=== PATIENT | male | born 1960 | race Caucasian/White ===

== ENCOUNTER 2016-04-13 17:19 | Emergency (ER) | payer OTHER ==
[~2016-04-13] VITALS: Ht 152.4 cm; Wt 47.8 kg
[~2016-04-13 17:19] MED LIST: ACETAMINOP160 MG/51 GT; ACETAMINOP160 MG/51 PO; ACTOS30 MG GT; ACTOS45 MG GT; ACYCLOVIR200 MG/5 M GT; ALLERGY10 M2 GT; AMBIEN5 MG PO; ASPIR 8181 M1 GT; ASPIRIN81 M1 GT; ASPIRIN81 M2 GT; ASPIRIN81 M2 PO; AUGMENTIN50 MG/ML GT; AUGMENTIN600 MG/5 M PO; AUGMENTIN80 MG/ML PO; Ambien GT; BIOTENE ORALBAL42 GM MISC; BIOTENE ORALBAL42 GM MM; CALMOSEPTINE O120 GM TP; CAVILON DURABLE92 G1 TP; CHILD ASPIRIN81 M1 GT; CHILDREN'S ASPI81 M1 GT; CLARITIN10 MG GT; CLARITIN5 MG/5 ML GT; CLOTRIMAZOLE-BE15 GM TP; COLACE10 MG/ML GT; COMPAZINE10 MG GT; COMPAZINE10 MG PO; DAILY VITE1 EAC1 GT; DICLOXACILLIN500 MG GT; DIOCTO50 MG/5 ML GT; DOCU LIQUI50 MG/5 ML GT; DUONEB 2.5-0.5 M3 ML AEROSOL; DUONEB 2.5-0.5 M3 ML IH; DuoNeb IH; ERYTHROMYC1 APPLICAT LEFT EYE; FEOSOL300 MG/5 M GT; FLONASE16 G1 BOTH NARES; GABAPENTIN250 MG/5 M GT; GABAPENTIN250 MG/5 M PO; GABAPENTIN300 MG GT; GLUCAGEN1 MG IM; GLUCAGON1 MG IM; GLUCOPHAGE500 MG GT; HUMALOG100 UNIT/1 SC; HUMALOG100 UNIT/2 SC; LANTUS 10100 UNITS/ SC; LANTUS 3 M100 UNITS1 SC; LEVAQUIN500 MG GT; LEVAQUIN750 MG GT; LEVEMIR FL100 UNITS/ SC; LEVEMIR100 UNIT/2 SC; LEVO-T150 MCG PO; LEVOTHYROXINE125 MCG PO; LEVOTHYROXINE75 MCG GT; LEVOTHYROXINE75 MCG PO; LEVOTHYROXINE88 MCG GT; LEVOXYL88 MCG GT; LINZESS145 MCG PO; LISINOPRIL2.5 MG GT; LISINOPRIL5 MG GT; LORATADINE5 MG/5 M3 GT; LORATADINE5 MG/5 M3 PO; Levaquin G; Levothroid,Synthroid GT; METFORMIN HCL500 MG GT; METFORMIN HCL850 MG GT; MILK OF MAGN GT; MILK OF MAGNESI10 ML GT; MULTI-DELYN473 M1 GT; MULTIPLE VITAM1 EACH PO; NEURONTIN50 MG/ML GT; NOVOLIN N100 UNITS/ SC; NOVOLOG 10100 UNITS/ SC; NOVOLOG PE100 UNITS/ SC; NYSTATIN15 GM TP; NovoLOG Pen 3 ml SC; OMNICEF50 MG/1 ML PO; ONE-A-DAY ESSE1 EAC1 GT; PHENERGAN25 MG PR; PHILLIPS'400 MG/5 M GT; PIOGLITAZONE HC45 MG GT; PIOGLITAZONE HC45 MG PO; POLYMYXIN B-TMP10 ML LEFT EYE; PREVACID SOLUTA15 MG GT; PREVACID15 MG GT; PREVACID15 MG PO; PRILOSEC10 MG GT; RISAMINE OINTM113 GM TP; ROBITUSSIN DM118 ML GT; Reglan GT; SILACE50 MG/5 ML PO; SYNTHROID100 MCG PO; SYNTHROID50 MCG GT; SYNTHROID88 MCG GT; TYLENOL ELIXIR GT; TYLENOL SO167 MG/5 M GT; VALTREX50 MG/ML GT; VITAMIN B122500 MCG PO; WATER FLUSH GT; ZESTRIL2.5 MG GT; ZESTRIL2.5 MG PO; ZOFRAN0.8 MG/1 M GT; ZOVIRAX40 MG/ML GT; ZOVIRAX400 MG GT; Zeasorb Antifungal T TP; [UNRECOGNIZED DRUG - OTHER] GT; [UNRECOGNIZED DRUG - OTHER] GT; [UNRECOGNIZED DRUG - OTHER] PO; [UNRECOGNIZED DRUG - OTHER] TP; [UNRECOGNIZED DRUG - OTHER] TP; [UNRECOGNIZED DRUG - OTHER] TP; [UNRECOGNIZED DRUG - SUPPLY] TP
[2016-04-13 19:35] VITALS: BP 142/88
[2016-04-15 22:16] LABS: POINT-OF-CARE METER ID UU13113800
== END 2016-04-13 19:36 | disposition home or self-care (01) ==
LOC: EME 17:19
PROVIDERS: Nurse Practitioner Family
PROC: 0D20XUZ Change Feeding Device in Upper Intestinal Tract, External Approach (ICD-10-PCS; principal; 2016-04-13)
DX: K94.29 Other complications of gastrostomy (principal); Z43.1 Encounter for attention to gastrostomy; F79 Unspecified intellectual disabilities; E03.9 Hypothyroidism, unspecified; J45.909 Unspecified asthma, uncomplicated; E11.9 Type 2 diabetes mellitus without complications; Z79.4 Long term (current) use of insulin; Z79.82 Long term (current) use of aspirin
CPT/HCPCS: 74000; 82948; 99281; 99284; B4087

== ENCOUNTER → 2016-06-08 | Outpatient (CLI) | payer OTHER | END | disposition HM.POTOMAC | LOC: RAD 12:37 | PROC: 0DH67UZ Insertion of Feeding Device into Stomach, Via Natural or Artificial Opening (ICD-10-PCS; principal; 2016-06-08) | DX: K94.20 Gastrostomy complication, unspecified (principal) ==

== ENCOUNTER 2016-07-27 00:11 | Inpatient (IN) | payer OTHER ==
[~2016-07-27] VITALS: Ht 149.9 cm; Wt 59.3 kg
[~2016-07-27 00:11] MED LIST changes: -GABAPENTIN250 MG/5 M PO; +LEVO-T150 MCG GT; -LEVO-T150 MCG PO; +LINZESS145 MCG GT; -LINZESS145 MCG PO; -LORATADINE5 MG/5 M3 PO; +MULTIPLE VITAM1 EACH GT; -MULTIPLE VITAM1 EACH PO; -PIOGLITAZONE HC45 MG PO; +SILACE50 MG/5 ML GT; -SILACE50 MG/5 ML PO; +VITAMIN B122500 MCG GT; -VITAMIN B122500 MCG PO
[2016-07-27 01:02] LABS: HEMATOCRIT 25.4 % (38.0-50.0); MCH 30.7 PG (29.0-34.0); MCHC 33.5 G/DL (30.0-36.0); MEAN PLAT.VOLUME 11.2 uM^3 (9.0-12.4); RBC DIS.WIDTH-CV 14.9 % (11.8-14.6); RBC DIS.WIDTH-SD 50.8 % (39-53); RED BLOOD COUNT 2.77 M/uL (4.00-5.50); WHITE BLOOD COUNT 2.4 K/uL (4.1-10.2)
[2016-07-27 01:07] LABS: MCV 91.7 FL (86-99); PLATELET COUNT 111 K/uL (156-360)
[2016-07-27 01:12] LABS: CHLORIDE 97 mEq/L (99-109); POTASSIUM 4.3 mEq/L (3.7-5.4); SODIUM 126 mEq/L (136-147)
[2016-07-27 01:14] LABS: INTER. NORMALIZED RATIO 1.3; PROTHROMBIN TIME 13.2 (9.2-11.2); PTT 29.9 (25-32)
[2016-07-27 01:15] LABS: ANION GAP 6 MEQ/L (2-14)
[2016-07-27 01:16] LABS: TOTAL BILIRUBIN 0.4 mg/dL (0.0-1.0)
[2016-07-27 01:18] LABS: ALKALINE PHOSPHATASE 115 IU/L (3-129); GFR ESTIMATE (CALCULATED) 51 mL/min/
[2016-07-27 01:19] LABS: UREA NITROGEN (BUN) 27 mg/dL (9-23)
[2016-07-27 01:21] LABS: LIPASE 8 U/L (1.0-51.0)
[2016-07-27 01:23] LABS: GLUCOSE 546 mg/dL (70-99)
[2016-07-27 01:27] LABS: TROP-I INTERPRETATION NEGATIVE; TROPONIN-I 0.02 ng/mL (0.0-0.30)
[2016-07-27 01:35] LABS: INFLUENZA A VIRAL ANTIGEN POSITIVE; INFLUENZA B VIRAL ANTIGEN NEGATIVE
[2016-07-27 01:46] LABS: CARBON DIOXIDE (BICARBONATE) 27.3 MEQ/L (20-31)
[2016-07-27 05:14] LABS: BILIRUBIN NEGATIVE; BLOOD NEGATIVE; COLOR YELLOW ((YELLOW)); GLUCOSE (STRIP) >=500; KETONES NEGATIVE; LEUKOCYTES NEGATIVE; NITRITE NEGATIVE; PROTEIN (STRIP) NEGATIVE; SPECIFIC GRAVITY 1.015 (1.000-1.030); UROBILINOGEN 0.2 MG/DL (0.2-1.0)
[2016-07-27 05:17] LABS: ADD MIUA? NO; UCUL ADDED? NO
[2016-07-27 05:22] LABS: GLUCOSE 51 mg/dL (70-99)
[2016-07-27 05:51] LABS: CREATININE 1.3 mg/dL (0.6-1.3); POTASSIUM 3.9 mEq/L (3.7-5.4)
[2016-07-27 06:09] LABS: BASE EXCESS -5.8 mEq/L (-3 to +3); BICARBONATE 20.2 mEq/L (22-26); CARBOXY HGB 1.8 % (0-5); METHEMOGLOBIN 0.6 % (0-1.5); PCO2 41 mm Hg (35-45); PO2 115 mm Hg (80-100)
[2016-07-27 06:10] LABS: COMMENTS - BLOOD GASES C+A+; DEVICE NCHH; FI02 100 %; O2 FLOW 70 L/MIN; SITE RR
[2016-07-27 06:23] LABS: POINT-OF-CARE METER ID UU13113702
[2016-07-27] MEDS ORDERED: HUMALOG100 UNIT/1 SC (08:11)
[2016-07-27 08:13] LABS: POINT-OF-CARE METER ID UU13113702
[2016-07-27] MEDS ORDERED: GLUCERNA 1 CAL237 ML GT (08:14)
[2016-07-27] MEDS ORDERED: CEPHALEXIN500 MG GT (08:20)
[2016-07-27] MEDS ORDERED: MIRALAX17 GM GT (08:22)
[2016-07-27] MEDS ORDERED: FERROUS SU220 MG/53 GT (08:25)
[2016-07-27] MEDS ORDERED: SALINE NASAL SP45 ML BOTH NARES (08:27)
[2016-07-27] MEDS ORDERED: TAMIFLU6 MG/1 ML GT (08:29)
[2016-07-27] MEDS ORDERED: CAVILON DURABLE92 G1 TP (08:30)
[2016-07-27 09:13] LABS: POINT-OF-CARE METER ID UU13113702
[2016-07-27 09:25] VITALS: BP 91/67
[2016-07-27 09:30] VITALS: BP 94/61
[2016-07-27 09:45] VITALS: BP 77/55
[2016-07-27 11:01] LABS: METH RESISTANT S AUREUS PCR NEGATIVE (NEGATIVE); PROBE CHECK PASS; SPECIMEN PROCESSING CONTROL PASS
[2016-07-27 13:43] LABS: POINT-OF-CARE METER ID UU14162636
[2016-07-27 18:38] LABS: POINT-OF-CARE METER ID UU13113803; POINT-OF-CARE USER ID 606021424
[2016-07-27 20:00] VITALS: BP 108/70
[2016-07-28 05:15] LABS: POINT-OF-CARE METER ID UU14162636
[2016-07-28 06:12] LABS: ANION GAP 7 MEQ/L (2-14); CHLORIDE 111 MEQ/L (99-109); GFR ESTIMATE (CALCULATED) > 59 mL/min/; POTASSIUM 4.3 MEQ/L (3.7-5.4); SAMPLE HEMOLYSIS CHECK 0; SAMPLE ICTERIC CHECK 0; SAMPLE LIPEMIA CHECK 0; UREA NITROGEN (BUN) 22 mg/dL (9-23)
[2016-07-28 06:13] LABS: GLUCOSE 150 mg/dL (70-99); SODIUM 137 MEQ/L (136-147)
[2016-07-28 06:16] LABS: HEMATOCRIT 23.6 % (38.0-50.0); MCHC 32.6 G/DL (30.0-36.0); MCV 95.2 FL (86-99); RBC DIS.WIDTH-CV 15.8 % (11.8-14.6); RBC DIS.WIDTH-SD 54.6 % (39-53); RED BLOOD COUNT 2.48 M/uL (4.00-5.50)
[2016-07-28 06:21] LABS: WHITE BLOOD COUNT 12.1 K/uL (4.1-10.2)
[2016-07-28 06:52] LABS: MEAN PLAT.VOLUME 11.5 uM^3 (9.0-12.4); PLAT.SUFFICIENCY DECREASED; PLATELET COUNT 64 K/uL (156-360)
[2016-07-28 12:22] LABS: POINT-OF-CARE METER ID UU13113803
[2016-07-28 14:13] VITALS: BP 116/61
[2016-07-28 16:49] VITALS: BP 115/52
[2016-07-28 18:04] LABS: POINT-OF-CARE METER ID UU13113803
[2016-07-28 20:08] VITALS: BP 130/64
[2016-07-29 06:22] LABS: EOSINOPHIL (%) 0 % (0-5); IMMATURE GRANULOCYTE COUNT 0.1 K/uL; INSTRUMENT ABS NEUTROPHIL CT 10.1 K/uL; LYMPHOCYTE COUNT 0.4 K/uL (1.0-2.8); MCH 29.3 PG (29.0-34.0); MCHC 32.4 G/DL (30.0-36.0); MONOCYTE (%) 3.9 % (3-12); MONOCYTE COUNT 0.4 K/uL (0-0.8); NEUTROPHIL (%) 91.3 % (45-76); NEUTROPHIL COUNT 10.1 K/uL (1.8-6.4); RBC DIS.WIDTH-CV 17.3 % (11.8-14.6); RBC DIS.WIDTH-SD 57.3 % (39-53); RED BLOOD COUNT 3.65 M/uL (4.00-5.50); WHITE BLOOD COUNT 11.1 K/uL (4.1-10.2)
[2016-07-29 06:23] LABS: MCV 90.4 FL (86-99)
[2016-07-29 06:24] LABS: ANION GAP 15 MEQ/L (2-14); CHLORIDE 107 MEQ/L (99-109); GFR ESTIMATE (CALCULATED) > 59 mL/min/; GLUCOSE 448 mg/dL (70-99); SAMPLE HEMOLYSIS CHECK 0; SAMPLE ICTERIC CHECK 0; SAMPLE LIPEMIA CHECK 0; SODIUM 137 MEQ/L (136-147); UREA NITROGEN (BUN) 29 mg/dL (9-23)
[2016-07-29 07:57] LABS: HEMATOLOGY COMMENT 1 SMEAR COMPATIBLE; IMM.PLATELET FRACTION 6.9 (1-7)
[2016-07-29 07:58] LABS: PLATELET COUNT 36 K/uL (156-360)
[2016-07-29 08:00] LABS: POINT-OF-CARE METER ID UU13113803
[2016-07-29 12:02] LABS: POINT-OF-CARE METER ID UU13113803
[2016-07-29 16:55] LABS: POINT-OF-CARE METER ID UU13113803
[2016-07-29 17:18] LABS: POINT-OF-CARE METER ID UU13113803
[2016-07-30 01:22] LABS: POINT-OF-CARE METER ID UU13113803
[2016-07-30 06:06] LABS: EOSINOPHIL (%) 0 % (0-5); HEMATOCRIT 30.7 % (38.0-50.0); IMMATURE GRANULOCYTE (%) 1.3 % (0.0-0.7); IMMATURE GRANULOCYTE COUNT 0.2 K/uL; INSTRUMENT ABS NEUTROPHIL CT 13.5 K/uL; LYMPHOCYTE COUNT 0.5 K/uL (1.0-2.8); MCH 29.7 PG (29.0-34.0); MCHC 34.2 G/DL (30.0-36.0); MCV 86.7 FL (86-99); MONOCYTE (%) 5.1 % (3-12); MONOCYTE COUNT 0.8 K/uL (0-0.8); NEUTROPHIL (%) 90.3 % (45-76); NEUTROPHIL COUNT 13.5 K/uL (1.8-6.4); NRBC (%) 0.2 /100 WBC (0-0); RBC DIS.WIDTH-CV 17.2 % (11.8-14.6); RBC DIS.WIDTH-SD 55.4 % (39-53); RED BLOOD COUNT 3.54 M/uL (4.00-5.50)
[2016-07-30 06:52] LABS: IMM.PLATELET FRACTION 7.8 (1-7); PLAT.SUFFICIENCY DECREASED; PLATELET COUNT 18 K/uL (156-360)
[2016-07-30 06:53] LABS: ANION GAP 8 MEQ/L (2-14); CHLORIDE 112 MEQ/L (99-109); GFR ESTIMATE (CALCULATED) > 59 mL/min/; POTASSIUM 3.4 MEQ/L (3.7-5.4); SAMPLE HEMOLYSIS CHECK 0; SAMPLE ICTERIC CHECK 0; SAMPLE LIPEMIA CHECK 0; SODIUM 141 MEQ/L (136-147); UREA NITROGEN (BUN) 27 mg/dL (9-23)
[2016-07-30 06:57] LABS: GLUCOSE 81 mg/dL (70-99)
[2016-07-30 10:05] LABS: ADD MIUA? YES; BILIRUBIN NEGATIVE; BLOOD LARGE; COLOR RED ((YELLOW)); GLUCOSE (STRIP) NEGATIVE; KETONES MODERATE; LEUKOCYTES NEGATIVE; NITRITE NEGATIVE; PROTEIN (STRIP) 100; SPECIFIC GRAVITY 1.018 (1.000-1.030); UROBILINOGEN 0.2 MG/DL (0.2-1.0)
[2016-07-30 10:18] LABS: BACTERIA 1+ /HPF; EPITHELIAL CELLS RARE /HPF; MUCUS NONE SEEN /LPF; RED BLOOD CELLS TNTC /HPF (0-5); UCUL ADDED? YES; WHITE BLOOD CELLS TNTC /HPF (0-5)
[2016-07-30 12:50] LABS: POINT-OF-CARE METER ID UU13113803
[2016-07-30 18:16] LABS: POINT-OF-CARE METER ID UU13113803
[2016-07-30 20:00] VITALS: BP 131/74
[2016-07-30 23:00] VITALS: BP 99/60
[2016-07-31] VITALS (20 sets, daily range): BP systolic 84–125; BP diastolic 47–77
[2016-07-31 05:56] LABS: EOSINOPHIL (%) 0.1 % (0-5); HEMATOCRIT 28.9 % (38.0-50.0); IMMATURE GRANULOCYTE (%) 2.1 % (0.0-0.7); IMMATURE GRANULOCYTE COUNT 0.3 K/uL; INSTRUMENT ABS NEUTROPHIL CT 12.1 K/uL; LYMPHOCYTE COUNT 0.5 K/uL (1.0-2.8); MCH 29.7 PG (29.0-34.0); MCHC 34.3 G/DL (30.0-36.0); MCV 86.8 FL (86-99); MONOCYTE COUNT 0.7 K/uL (0-0.8); NEUTROPHIL (%) 89.1 % (45-76); NEUTROPHIL COUNT 12.1 K/uL (1.8-6.4); NRBC (%) 0.3 /100 WBC (0-0); RBC DIS.WIDTH-CV 17.5 % (11.8-14.6); RBC DIS.WIDTH-SD 55.8 % (39-53); RED BLOOD COUNT 3.33 M/uL (4.00-5.50); WHITE BLOOD COUNT 13.5 K/uL (4.1-10.2)
[2016-07-31 05:57] LABS: POINT-OF-CARE METER ID UU13113803
[2016-07-31 05:58] LABS: PLATELET COUNT 15 K/uL (156-360)
[2016-07-31 06:17] LABS: HEMATOCRIT 28.8 % (38.0-50.0); MCH 29.6 PG (29.0-34.0); MCHC 34.4 G/DL (30.0-36.0); MCV 86.2 FL (86-99); NRBC (%) 0.3 /100 WBC (0-0); RBC DIS.WIDTH-CV 17.3 % (11.8-14.6); RBC DIS.WIDTH-SD 55.2 % (39-53); RED BLOOD COUNT 3.34 M/uL (4.00-5.50); WHITE BLOOD COUNT 13.5 K/uL (4.1-10.2)
[2016-07-31 06:34] LABS: ANION GAP 11 MEQ/L (2-14); CHLORIDE 110 MEQ/L (99-109); GFR ESTIMATE (CALCULATED) > 59 mL/min/; LACTATE DEHYDROGENASE 502 IU/L (20-246); MAGNESIUM 1.6 mg/dl (1.3-2.7); POTASSIUM 3.8 MEQ/L (3.7-5.4); SAMPLE HEMOLYSIS CHECK 0; SAMPLE ICTERIC CHECK 0; SAMPLE LIPEMIA CHECK 0; SODIUM 141 MEQ/L (136-147); UREA NITROGEN (BUN) 28 mg/dL (9-23)
[2016-07-31 06:35] LABS: GLUCOSE 187 mg/dL (70-99)
[2016-07-31 06:42] LABS: IMM.PLATELET FRACTION 4.7 (1-7); PLAT.SUFFICIENCY DECREASED
[2016-07-31 06:55] LABS: ABS NEUTROPHIL COUNT 12.2; ANISOCYTOSIS 1+; EOSINOPHIL ABS CT 0; PLATELET COUNT 15 K/uL (156-360); SMEAR EVALUATION YES; TARGET CELLS 1+
[2016-07-31 06:57] LABS: ORDERED MAN DIFF Y
[2016-07-31 14:23] LABS: POINT-OF-CARE METER ID UU13113803
[2016-07-31 18:32] LABS: POINT-OF-CARE METER ID UU14162636
[2016-08-01] VITALS (24 sets, daily range): BP systolic 82–120; BP diastolic 44–76
[2016-08-01 00:38] LABS: POINT-OF-CARE METER ID UU14162636
[2016-08-01 06:17] LABS: EOSINOPHIL (%) 0.3 % (0-5); HEMATOCRIT 29.2 % (38.0-50.0); IMMATURE GRANULOCYTE (%) 2.9 % (0.0-0.7); IMMATURE GRANULOCYTE COUNT 0.3 K/uL; INSTRUMENT ABS NEUTROPHIL CT 9.6 K/uL; LYMPHOCYTE COUNT 0.6 K/uL (1.0-2.8); MCH 29.3 PG (29.0-34.0); MCHC 33.6 G/DL (30.0-36.0); MCV 87.4 FL (86-99); MONOCYTE (%) 6.9 % (3-12); MONOCYTE COUNT 0.8 K/uL (0-0.8); NEUTROPHIL (%) 84.5 % (45-76); NEUTROPHIL COUNT 9.6 K/uL (1.8-6.4); NRBC (%) 0.8 /100 WBC (0-0); RBC DIS.WIDTH-CV 17.8 % (11.8-14.6); RBC DIS.WIDTH-SD 57.1 % (39-53); RED BLOOD COUNT 3.34 M/uL (4.00-5.50); WHITE BLOOD COUNT 11.3 K/uL (4.1-10.2)
[2016-08-01 06:48] LABS: ANION GAP 10 MEQ/L (2-14); CHLORIDE 113 MEQ/L (99-109); GFR ESTIMATE (CALCULATED) > 59 mL/min/; GLUCOSE 134 mg/dL (70-99); MAGNESIUM 1.8 mg/dl (1.3-2.7); SODIUM 147 MEQ/L (136-147); UREA NITROGEN (BUN) 29 mg/dL (9-23)
[2016-08-01 06:51] LABS: POTASSIUM 3.5 MEQ/L (3.7-5.4)
[2016-08-01 08:02] LABS: PLAT.SUFFICIENCY DECREASED
[2016-08-01 08:06] LABS: PLATELET COUNT 18 K/uL (156-360)
[2016-08-01 09:29] LABS: INTERNAL CONTROL VALID? YES
[2016-08-01 14:27] LABS: Heparin Induced Plt Ab Negative (Negative)
[2016-08-01 15:52] LABS: UFH SRA Result Negative (Negative)
[2016-08-02] VITALS (27 sets, daily range): BP systolic 72–115; BP diastolic 42–71
[2016-08-02 04:25] LABS: HEMATOCRIT 28.1 % (38.0-50.0); MCH 29.7 PG (29.0-34.0); MCHC 34.9 G/DL (30.0-36.0); MCV 85.2 FL (86-99); NRBC (%) 2.4 /100 WBC (0-0); RBC DIS.WIDTH-CV 17.2 % (11.8-14.6); RBC DIS.WIDTH-SD 54.2 % (39-53)
[2016-08-02 04:31] LABS: POTASSIUM 3.4 mEq/L (3.7-5.4); SODIUM 148 mEq/L (136-147)
[2016-08-02 04:32] LABS: CHLORIDE 114 mEq/L (99-109); MAGNESIUM 1.6 mg/dL (1.3-2.7)
[2016-08-02 04:33] LABS: GLUCOSE 104 mg/dL (70-99)
[2016-08-02 04:35] LABS: ANION GAP 10 MEQ/L (2-14)
[2016-08-02 04:37] LABS: GFR ESTIMATE (CALCULATED) 56 mL/min/
[2016-08-02 04:38] LABS: UREA NITROGEN (BUN) 31 mg/dL (9-23)
[2016-08-02 06:09] LABS: ABS NEUTROPHIL COUNT 6.6; ANISOCYTOSIS 2+; EOSINOPHIL ABS CT 0.1; IMM.PLATELET FRACTION 10.4 (1-7); INSTRUMENT ABS NEUTROPHIL CT 6.4 K/uL; MACROCYTES 2+; MICROCYTOSIS 1+; PLAT.SUFFICIENCY VERY DECREASED; POIKILOCYTOSIS 1+; POLYCHROMASIA 1+; TARGET CELLS 1+
[2016-08-02 06:10] LABS: PLATELET COUNT 22 K/uL (156-360)
[2016-08-02 12:54] LABS: POINT-OF-CARE METER ID UU13113803
[2016-08-02 17:38] LABS: POINT-OF-CARE METER ID UU13113803
[2016-08-03] VITALS (24 sets, daily range): BP systolic 84–116; BP diastolic 54–73
[2016-08-03 05:56] LABS: EOSINOPHIL (%) 0 % (0-5); HEMATOCRIT 24.8 % (38.0-50.0); IMMATURE GRANULOCYTE (%) 2.4 % (0.0-0.7); IMMATURE GRANULOCYTE COUNT 0.1 K/uL; INSTRUMENT ABS NEUTROPHIL CT 4.4 K/uL; LYMPHOCYTE COUNT 0.1 K/uL (1.0-2.8); MCH 29.4 PG (29.0-34.0); MCHC 33.5 G/DL (30.0-36.0); MCV 87.9 FL (86-99); MONOCYTE (%) 4.7 % (3-12); MONOCYTE COUNT 0.2 K/uL (0-0.8); NEUTROPHIL (%) 89.9 % (45-76); NEUTROPHIL COUNT 4.4 K/uL (1.8-6.4); NRBC (%) 7.1 /100 WBC (0-0); RBC DIS.WIDTH-CV 17.8 % (11.8-14.6); RBC DIS.WIDTH-SD 56.8 % (39-53); RED BLOOD COUNT 2.82 M/uL (4.00-5.50)
[2016-08-03 05:57] LABS: WHITE BLOOD COUNT 4.9 K/uL (4.1-10.2)
[2016-08-03 06:11] LABS: ANION GAP 12 MEQ/L (2-14); CHLORIDE 110 MEQ/L (99-109); GFR ESTIMATE (CALCULATED) > 59 mL/min/; SAMPLE HEMOLYSIS CHECK 0; SAMPLE ICTERIC CHECK 0; SAMPLE LIPEMIA CHECK 0; SODIUM 148 MEQ/L (136-147); UREA NITROGEN (BUN) 35 mg/dL (9-23)
[2016-08-03 06:12] LABS: GLUCOSE 227 mg/dL (70-99); MAGNESIUM 2.3 mg/dl (1.3-2.7)
[2016-08-03 06:25] LABS: PLATELET COUNT 26 K/uL (156-360)
[2016-08-03 06:39] LABS: POINT-OF-CARE METER ID UU13113803
[2016-08-03 08:03] LABS: POINT-OF-CARE METER ID UU14174217
[2016-08-03 11:47] LABS: POINT-OF-CARE METER ID UU13113803
[2016-08-03 18:09] LABS: POINT-OF-CARE METER ID UU13113803
[2016-08-03 23:52] LABS: POINT-OF-CARE METER ID UU13113803
[2016-08-04] VITALS (21 sets, daily range): BP systolic 82–136; BP diastolic 48–90
[2016-08-04 05:17] LABS: POINT-OF-CARE METER ID UU13113803
[2016-08-04 09:14] LABS: ANION GAP 14 MEQ/L (2-14); CHLORIDE 110 MEQ/L (99-109); GFR ESTIMATE (CALCULATED) > 59 mL/min/; GLUCOSE 215 mg/dL (70-99); MAGNESIUM 2.3 mg/dl (1.3-2.7); POTASSIUM 3.2 MEQ/L (3.7-5.4); SAMPLE HEMOLYSIS CHECK 0; SAMPLE ICTERIC CHECK 0; SAMPLE LIPEMIA CHECK 0; SODIUM 149 MEQ/L (136-147); UREA NITROGEN (BUN) 36 mg/dL (9-23)
[2016-08-04 09:20] LABS: VANCOMYCIN, TROUGH 19.9 MCG/ML (10-20)
[2016-08-04 09:28] LABS: EOSINOPHIL (%) 0 % (0-5); HEMATOCRIT 25.6 % (38.0-50.0); IMMATURE GRANULOCYTE (%) 2.5 % (0.0-0.7); IMMATURE GRANULOCYTE COUNT 0.2 K/uL; LYMPHOCYTE COUNT 0.3 K/uL (1.0-2.8); MCH 29.5 PG (29.0-34.0); MCHC 32.8 G/DL (30.0-36.0); MCV 89.8 FL (86-99); MONOCYTE (%) 5.6 % (3-12); MONOCYTE COUNT 0.4 K/uL (0-0.8); NEUTROPHIL (%) 88.7 % (45-76); NRBC (%) 7.6 /100 WBC (0-0); PLAT.SUFFICIENCY DECREASED; RBC DIS.WIDTH-CV 18.1 % (11.8-14.6); RBC DIS.WIDTH-SD 57.4 % (39-53); RED BLOOD COUNT 2.85 M/uL (4.00-5.50)
[2016-08-04 09:35] LABS: WHITE BLOOD COUNT 7.9 K/uL (4.1-10.2)
[2016-08-04 11:58] LABS: POINT-OF-CARE METER ID UU13113803
[2016-08-04 19:55] LABS: IMM.PLATELET FRACTION 14.3 (1-7)
[2016-08-04 22:29] LABS: POINT-OF-CARE METER ID UU13113803
[2016-08-04 22:42] LABS: PLATELET COUNT 43 K/uL (156-360)
[2016-08-05] VITALS (24 sets, daily range): BP systolic 87–138; BP diastolic 48–96
[2016-08-05 06:29] LABS: ANION GAP 8 MEQ/L (2-14); CHLORIDE 112 MEQ/L (99-109); GFR ESTIMATE (CALCULATED) > 59 mL/min/; MAGNESIUM 2.3 mg/dl (1.3-2.7); NRBC (%) 11.6 /100 WBC (0-0); POTASSIUM 3.7 MEQ/L (3.7-5.4); SAMPLE HEMOLYSIS CHECK 0; SAMPLE ICTERIC CHECK 0; SAMPLE LIPEMIA CHECK 0; SODIUM 152 MEQ/L (136-147); UREA NITROGEN (BUN) 33 mg/dL (9-23)
[2016-08-05 06:41] LABS: GLUCOSE 91 mg/dL (70-99)
[2016-08-05 06:58] LABS: EOSINOPHIL (%) 0 % (0-5); IMM.PLATELET FRACTION 16.3 (1-7); IMMATURE GRANULOCYTE (%) 4.8 % (0.0-0.7); IMMATURE GRANULOCYTE COUNT 0.4 K/uL; INSTRUMENT ABS NEUTROPHIL CT 7.4 K/uL; LYMPHOCYTE COUNT 0.2 K/uL (1.0-2.8); MCH 29.8 PG (29.0-34.0); MCHC 32.8 G/DL (30.0-36.0); MCV 90.9 FL (86-99); MONOCYTE (%) 8.2 % (3-12); MONOCYTE COUNT 0.7 K/uL (0-0.8); NEUTROPHIL (%) 84.8 % (45-76); NEUTROPHIL COUNT 7.4 K/uL (1.8-6.4); PLAT.SUFFICIENCY DECREASED; PLATELET COUNT 42 K/uL (156-360); RBC DIS.WIDTH-CV 18.7 % (11.8-14.6); RED BLOOD COUNT 2.75 M/uL (4.00-5.50); WHITE BLOOD COUNT 8.7 K/uL (4.1-10.2)
[2016-08-06] VITALS (24 sets, daily range): BP systolic 94–118; BP diastolic 54–89
[2016-08-06 06:09] LABS: ANION GAP 7 MEQ/L (2-14); CHLORIDE 110 MEQ/L (99-109); GFR ESTIMATE (CALCULATED) > 59 mL/min/; GLUCOSE 132 mg/dL (70-99); MAGNESIUM 2.2 mg/dl (1.3-2.7); POTASSIUM 3.4 MEQ/L (3.7-5.4); SAMPLE HEMOLYSIS CHECK 0; SAMPLE ICTERIC CHECK 0; SAMPLE LIPEMIA CHECK 0; SODIUM 149 MEQ/L (136-147); UREA NITROGEN (BUN) 32 mg/dL (9-23)
[2016-08-06 06:11] LABS: MCH 29.2 PG (29.0-34.0); MCHC 31.9 G/DL (30.0-36.0); MCV 91.5 FL (86-99); NRBC (%) 29.4 /100 WBC (0-0); RBC DIS.WIDTH-CV 19.2 % (11.8-14.6); RBC DIS.WIDTH-SD 57.6 % (39-53); RED BLOOD COUNT 2.84 M/uL (4.00-5.50); WHITE BLOOD COUNT 10.3 K/uL (4.1-10.2)
[2016-08-06 06:26] LABS: POINT-OF-CARE METER ID UU14162636
[2016-08-06 06:52] LABS: ANISOCYTOSIS 2+; BAND NEUTROPHILS 4.4 % (0-8.0); EOSINOPHIL ABS CT 0; IMM.PLATELET FRACTION 15.7 (1-7); INSTRUMENT ABS NEUTROPHIL CT 8.4 K/uL; LYMPHOCYTES 0.9 % (15.0-45.0); MACROCYTES 2+; METAMYELOCYTES 3.5 %; NUCLEATED RBC'S 37.2; PLAT.SUFFICIENCY DECREASED; PLATELET COUNT 47 K/uL (156-360); POIKILOCYTOSIS 1+; SCHISTOCYTES 1+; SEG.NEUTROPHILS 83.2 % (46.0-76.0); SPHEROCYTES 1+; TARGET CELLS 1+
[2016-08-06 12:05] LABS: POINT-OF-CARE METER ID UU14162636
[2016-08-06 18:22] LABS: POINT-OF-CARE METER ID UU14162636
[2016-08-06 23:00] LABS: POINT-OF-CARE METER ID UU14162636
[2016-08-07] VITALS (22 sets, daily range): BP systolic 89–125; BP diastolic 56–76
[2016-08-07 02:08] LABS: POINT-OF-CARE METER ID UU14174217; POINT-OF-CARE USER ID 609231305
[2016-08-07 06:11] LABS: POINT-OF-CARE METER ID UU14174217
[2016-08-07 06:24] LABS: ANION GAP 8 MEQ/L (2-14); CHLORIDE 107 MEQ/L (99-109); GFR ESTIMATE (CALCULATED) > 59 mL/min/; GLUCOSE 99 mg/dL (70-99); MAGNESIUM 1.9 mg/dl (1.3-2.7); POTASSIUM 3.9 MEQ/L (3.7-5.4); SAMPLE HEMOLYSIS CHECK 0; SAMPLE ICTERIC CHECK 0; SAMPLE LIPEMIA CHECK 0; SODIUM 144 MEQ/L (136-147); UREA NITROGEN (BUN) 27 mg/dL (9-23)
[2016-08-07 06:26] LABS: HEMATOCRIT 25.8 % (38.0-50.0); MCH 29.3 PG (29.0-34.0); MCHC 31.4 G/DL (30.0-36.0); MCV 93.5 FL (86-99); NRBC (%) 28.6 /100 WBC (0-0); RBC DIS.WIDTH-CV 20.9 % (11.8-14.6); RBC DIS.WIDTH-SD 58.8 % (39-53); RED BLOOD COUNT 2.76 M/uL (4.00-5.50); WHITE BLOOD COUNT 11.1 K/uL (4.1-10.2)
[2016-08-07 07:03] LABS: ABS NEUTROPHIL COUNT 9.7; ANISOCYTOSIS 2+; BAND NEUTROPHILS 3.6 % (0-8.0); EOSINOPHIL ABS CT 0; IMM.PLATELET FRACTION 13.9 (1-7); LYMPHOCYTES 4.5 % (15.0-45.0); MACROCYTES 2+; METAMYELOCYTES 1.8 %; NUCLEATED RBC'S 29.5; PLAT.SUFFICIENCY DECREASED; PLATELET COUNT 33 K/uL (156-360); POIKILOCYTOSIS 1+; POLYCHROMASIA 1+; SCHISTOCYTES 1+; SEG.NEUTROPHILS 83.9 % (46.0-76.0); SPHEROCYTES 1+
[2016-08-07 18:24] LABS: POINT-OF-CARE METER ID UU14174217
[2016-08-08] VITALS (15 sets, daily range): BP systolic 97–114; BP diastolic 54–73
[2016-08-08 00:35] LABS: POINT-OF-CARE METER ID UU14174217
[2016-08-08 06:12] LABS: ANION GAP 6 MEQ/L (2-14); CHLORIDE 102 MEQ/L (99-109); GFR ESTIMATE (CALCULATED) > 59 mL/min/; SAMPLE HEMOLYSIS CHECK 0; SAMPLE ICTERIC CHECK 0; SAMPLE LIPEMIA CHECK 0; SODIUM 137 MEQ/L (136-147); UREA NITROGEN (BUN) 25 mg/dL (9-23)
[2016-08-08 06:13] LABS: GLUCOSE 163 mg/dL (70-99); MAGNESIUM 2.2 mg/dl (1.3-2.7); POTASSIUM 5.3 MEQ/L (3.7-5.4)
[2016-08-08 06:43] LABS: HEMATOCRIT 26.9 % (38.0-50.0); MCH 30.2 PG (29.0-34.0); MCV 94.4 FL (86-99); NRBC (%) 29.4 /100 WBC (0-0); RBC DIS.WIDTH-CV 22.4 % (11.8-14.6); RBC DIS.WIDTH-SD 58.4 % (39-53); RED BLOOD COUNT 2.85 M/uL (4.00-5.50); WHITE BLOOD COUNT 10.6 K/uL (4.1-10.2)
[2016-08-08 06:59] LABS: ABS NEUTROPHIL COUNT 8.8; ANISOCYTOSIS 2+; BAND NEUTROPHILS 7.4 % (0-8.0); BASOPHILS 0.9 %; EOSINOPHIL ABS CT 0; INSTRUMENT ABS NEUTROPHIL CT 8.7 K/uL; LYMPHOCYTES 1.8 % (15.0-45.0); MACROCYTES 1+; METAMYELOCYTES 1.8 %; MICROCYTOSIS 1+; MYELOCYTES 3.7 %; NUCLEATED RBC'S 27.5; PLAT.SUFFICIENCY DECREASED; POIKILOCYTOSIS 1+; POLYCHROMASIA 1+; SCHISTOCYTES 1+; SEG.NEUTROPHILS 75.2 % (46.0-76.0); TARGET CELLS 1+
[2016-08-08 07:12] LABS: PLATELET COUNT 24 K/uL (156-360)
[2016-08-08 11:56] LABS: POINT-OF-CARE METER ID UU14174217
[2016-08-08 17:33] LABS: POINT-OF-CARE METER ID UU13113803
[2016-08-08 23:38] LABS: POINT-OF-CARE METER ID UU13113803
[2016-08-09 00:15] VITALS: BP 108/62
[2016-08-09 00:45] VITALS: BP 108/62
[2016-08-09 04:23] VITALS: BP 121/58
[2016-08-09 05:36] LABS: ANION GAP 5 MEQ/L (2-14); CHLORIDE 101 MEQ/L (99-109); GFR ESTIMATE (CALCULATED) > 59 mL/min/; GLUCOSE 147 mg/dL (70-99); POTASSIUM 4.8 MEQ/L (3.7-5.4); SAMPLE HEMOLYSIS CHECK 0; SAMPLE ICTERIC CHECK 0; SAMPLE LIPEMIA CHECK 0; SODIUM 138 MEQ/L (136-147); UREA NITROGEN (BUN) 26 mg/dL (9-23)
[2016-08-09 06:12] LABS: MCHC 31.4 G/DL (30.0-36.0); MCV 95.6 FL (86-99); NRBC (%) 30.8 /100 WBC (0-0); RBC DIS.WIDTH-SD 58.2 % (39-53); RED BLOOD COUNT 2.93 M/uL (4.00-5.50); WHITE BLOOD COUNT 8.9 K/uL (4.1-10.2)
[2016-08-09 07:49] LABS: ABS NEUTROPHIL COUNT 7.7; ANISOCYTOSIS 3+; EOSINOPHIL ABS CT 0; HELMET CELLS 1+; IMM.PLATELET FRACTION 16.9 (1-7); INSTRUMENT ABS NEUTROPHIL CT 7.3 K/uL; MACROCYTES 2+; MICROCYTOSIS 1+; PLAT.SUFFICIENCY DECREASED; POIKILOCYTOSIS 1+; POLYCHROMASIA 2+; SCHISTOCYTES 1+; SPHEROCYTES 1+; TARGET CELLS 1+
[2016-08-09 07:55] LABS: PLATELET COUNT 28 K/uL (156-360)
[2016-08-09 08:08] VITALS: BP 116/57
[2016-08-09 12:09] LABS: POINT-OF-CARE METER ID UU14149397
[2016-08-09 17:13] VITALS: BP 105/68
[2016-08-10 00:26] VITALS: BP 90/51
[2016-08-10 05:31] LABS: HEMATOCRIT 29.2 % (38.0-50.0); MCH 30.9 PG (29.0-34.0); MCHC 31.8 G/DL (30.0-36.0); NRBC (%) 14.1 /100 WBC (0-0); RBC DIS.WIDTH-SD 57.3 % (39-53); RED BLOOD COUNT 3.01 M/uL (4.00-5.50)
[2016-08-10 05:32] LABS: WHITE BLOOD COUNT 11.7 K/uL (4.1-10.2)
[2016-08-10 06:01] LABS: ABS NEUTROPHIL COUNT 10.4; ANISOCYTOSIS 2+; ATYPICAL LYMPHOCYTE 0.9 %; BAND NEUTROPHILS 1.7 % (0-8.0); BASOPHILS 0.9 %; EOSINOPHIL ABS CT 0; HELMET CELLS 1+; HYPOCHROMASIA 2+; IMM.PLATELET FRACTION 18.5 (1-7); INSTRUMENT ABS NEUTROPHIL CT 10.1 K/uL; LYMPHOCYTES 2.6 % (15.0-45.0); MACROCYTES 2+; METAMYELOCYTES 0.9 %; MICROCYTOSIS 1+; MYELOCYTES 0.9 %; NUCLEATED RBC'S 10.5; PLATELET COUNT 35 K/uL (156-360); POIKILOCYTOSIS 1+; POLYCHROMASIA 2+; SEG.NEUTROPHILS 86.8 % (46.0-76.0); TARGET CELLS 2+; TEAR DROP CELLS 2+
[2016-08-10 06:13] LABS: ALKALINE PHOSPHATASE 194 IU/L (3-129); ANION GAP 6 MEQ/L (2-14); CHLORIDE 99 MEQ/L (99-109); DIRECT BILIRUBIN 0.2 mg/dL (0.0-0.3); GFR ESTIMATE (CALCULATED) > 59 mL/min/; LACTATE DEHYDROGENASE 856 IU/L (20-246); MAGNESIUM 1.8 mg/dl (1.3-2.7); POTASSIUM 4.3 MEQ/L (3.7-5.4); SAMPLE HEMOLYSIS CHECK 0; SAMPLE ICTERIC CHECK 0; SAMPLE LIPEMIA CHECK 0; SODIUM 139 MEQ/L (136-147); TOTAL BILIRUBIN 1.2 MG/DL (0.0-1.0); UREA NITROGEN (BUN) 29 mg/dL (9-23)
[2016-08-10 06:14] LABS: GLUCOSE 69 mg/dL (70-99)
[2016-08-10 06:45] LABS: POINT-OF-CARE METER ID UU14149397
[2016-08-10 08:03] VITALS: BP 99/58
[2016-08-10 11:46] LABS: POINT-OF-CARE METER ID UU14149397
[2016-08-10 16:26] VITALS: BP 114/57
[2016-08-10 19:35] VITALS: BP 105/62
[2016-08-10 23:41] VITALS: BP 97/57
[2016-08-11 05:45] LABS: ALKALINE PHOSPHATASE 184 IU/L (3-129); ANION GAP 6 MEQ/L (2-14); CHLORIDE 100 MEQ/L (99-109); DIRECT BILIRUBIN 0.4 mg/dL (0.0-0.3); GFR ESTIMATE (CALCULATED) > 59 mL/min/; MAGNESIUM 1.8 mg/dl (1.3-2.7); POTASSIUM 4.4 MEQ/L (3.7-5.4); SAMPLE HEMOLYSIS CHECK 0; SAMPLE ICTERIC CHECK 0; SAMPLE LIPEMIA CHECK 0; SODIUM 140 MEQ/L (136-147); UREA NITROGEN (BUN) 30 mg/dL (9-23)
[2016-08-11 05:46] LABS: GLUCOSE 124 mg/dL (70-99)
[2016-08-11 05:57] LABS: EOSINOPHIL (%) 0 % (0-5); IMMATURE GRANULOCYTE (%) 4.3 % (0.0-0.7); IMMATURE GRANULOCYTE COUNT 0.5 K/uL; LYMPHOCYTE COUNT 0.3 K/uL (1.0-2.8); MCH 30.7 PG (29.0-34.0); MCHC 31.1 G/DL (30.0-36.0); MCV 98.9 FL (86-99); MONOCYTE (%) 6.9 % (3-12); MONOCYTE COUNT 0.7 K/uL (0-0.8); NEUTROPHIL (%) 86.1 % (45-76); NRBC (%) 6.4 /100 WBC (0-0); PLAT.SUFFICIENCY VERY DECREASED; RBC DIS.WIDTH-CV 27.5 % (11.8-14.6); RBC DIS.WIDTH-SD 58.6 % (39-53); RED BLOOD COUNT 2.83 M/uL (4.00-5.50); WHITE BLOOD COUNT 10.4 K/uL (4.1-10.2)
[2016-08-11 06:20] LABS: IMM.PLATELET FRACTION 12.6 (1-7); PLATELET COUNT 46 K/uL (156-360)
[2016-08-11 06:49] LABS: POINT-OF-CARE METER ID UU14188577
[2016-08-11 08:58] VITALS: BP 110/64
[2016-08-11 13:53] LABS: POINT-OF-CARE METER ID UU14188577
[2016-08-11 15:56] LABS: POINT-OF-CARE METER ID UU14188577
[2016-08-11 17:47] VITALS: BP 103/67
[2016-08-11 23:34] VITALS: BP 124/58
[2016-08-12 05:55] LABS: ANION GAP 5 MEQ/L (2-14); CHLORIDE 96 MEQ/L (99-109); GFR ESTIMATE (CALCULATED) > 59 mL/min/; GLUCOSE 125 mg/dL (70-99); MAGNESIUM 1.9 mg/dl (1.3-2.7); POTASSIUM 3.7 MEQ/L (3.7-5.4); SAMPLE HEMOLYSIS CHECK 0; SAMPLE ICTERIC CHECK 0; SAMPLE LIPEMIA CHECK 0; SODIUM 138 MEQ/L (136-147); UREA NITROGEN (BUN) 27 mg/dL (9-23)
[2016-08-12 06:15] LABS: EOSINOPHIL COUNT 0.1 K/uL (0-0.3); HEMATOCRIT 32.5 % (38.0-50.0); IMMATURE GRANULOCYTE (%) 3.1 % (0.0-0.7); IMMATURE GRANULOCYTE COUNT 0.2 K/uL; INSTRUMENT ABS NEUTROPHIL CT 5.8 K/uL; MCH 31.4 PG (29.0-34.0); MCHC 30.8 G/DL (30.0-36.0); MCV 102.2 FL (86-99); MONOCYTE (%) 9.7 % (3-12); MONOCYTE COUNT 0.8 K/uL (0-0.8); NEUTROPHIL (%) 73.9 % (45-76); NEUTROPHIL COUNT 5.8 K/uL (1.8-6.4); NRBC (%) 3.3 /100 WBC (0-0); PLATELET COUNT 56 K/uL (156-360); RED BLOOD COUNT 3.18 M/uL (4.00-5.50); WHITE BLOOD COUNT 7.8 K/uL (4.1-10.2)
[2016-08-12 08:00] VITALS: BP 98/62
[2016-08-12 11:58] LABS: POINT-OF-CARE METER ID UU14188577
[2016-08-12 17:05] VITALS: BP 87/58
[2016-08-12 17:20] VITALS: BP 95/60
[2016-08-12 18:44] LABS: POINT-OF-CARE METER ID UU14188577
[2016-08-13 00:54] VITALS: BP 98/58
[2016-08-13 01:26] LABS: POINT-OF-CARE METER ID UU14188577
[2016-08-13 05:09] LABS: CHLORIDE 97 mEq/L (99-109); POTASSIUM 3.9 mEq/L (3.7-5.4); SODIUM 139 mEq/L (136-147)
[2016-08-13 05:10] LABS: MAGNESIUM 1.5 mg/dL (1.3-2.7)
[2016-08-13 05:11] LABS: GLUCOSE 98 mg/dL (70-99)
[2016-08-13 05:13] LABS: ANION GAP 8 MEQ/L (2-14)
[2016-08-13 05:15] LABS: GFR ESTIMATE (CALCULATED) > 59 mL/min/
[2016-08-13 05:16] LABS: UREA NITROGEN (BUN) 33 mg/dL (9-23)
[2016-08-13 05:43] LABS: EOSINOPHIL (%) 0.5 % (0-5); EOSINOPHIL COUNT 0.1 K/uL (0-0.3); HEMATOCRIT 33.6 % (38.0-50.0); IMMATURE GRANULOCYTE (%) 1.5 % (0.0-0.7); IMMATURE GRANULOCYTE COUNT 0.2 K/uL; INSTRUMENT ABS NEUTROPHIL CT 9.7 K/uL; LYMPHOCYTE COUNT 0.8 K/uL (1.0-2.8); MCH 31.9 PG (29.0-34.0); MCHC 31.8 G/DL (30.0-36.0); MCV 100.3 FL (86-99); MONOCYTE (%) 6.8 % (3-12); MONOCYTE COUNT 0.8 K/uL (0-0.8); NEUTROPHIL (%) 84.6 % (45-76); NEUTROPHIL COUNT 9.7 K/uL (1.8-6.4); PLATELET COUNT 59 K/uL (156-360); RBC DIS.WIDTH-CV 28.2 % (11.8-14.6); RBC DIS.WIDTH-SD 98.3 % (39-53); RED BLOOD COUNT 3.35 M/uL (4.00-5.50); WHITE BLOOD COUNT 11.5 K/uL (4.1-10.2)
[2016-08-13 07:34] VITALS: BP 91/55
[2016-08-13 12:07] LABS: POINT-OF-CARE METER ID UU14149397
[2016-08-13 15:04] VITALS: BP 97/52
[2016-08-13 18:58] LABS: POINT-OF-CARE METER ID UU14188577
[2016-08-14 00:12] VITALS: BP 101/58
[2016-08-14 01:16] LABS: POINT-OF-CARE METER ID UU14149397
[2016-08-14 06:12] LABS: EOSINOPHIL (%) 1.3 % (0-5); EOSINOPHIL COUNT 0.1 K/uL (0-0.3); HEMATOCRIT 29.8 % (38.0-50.0); IMMATURE GRANULOCYTE COUNT 0.2 K/uL; INSTRUMENT ABS NEUTROPHIL CT 5.9 K/uL; LYMPHOCYTE COUNT 0.9 K/uL (1.0-2.8); MCHC 31.5 G/DL (30.0-36.0); MCV 101.4 FL (86-99); MONOCYTE (%) 8.9 % (3-12); MONOCYTE COUNT 0.7 K/uL (0-0.8); NEUTROPHIL (%) 76.2 % (45-76); NEUTROPHIL COUNT 5.9 K/uL (1.8-6.4); NRBC (%) 0.5 /100 WBC (0-0); PLATELET COUNT 76 K/uL (156-360); RBC DIS.WIDTH-CV 26.7 % (11.8-14.6); RBC DIS.WIDTH-SD 94.1 % (39-53); RED BLOOD COUNT 2.94 M/uL (4.00-5.50)
[2016-08-14 06:19] LABS: ANION GAP 4 MEQ/L (2-14); CHLORIDE 95 MEQ/L (99-109); GFR ESTIMATE (CALCULATED) > 59 mL/min/; GLUCOSE 93 mg/dL (70-99); POTASSIUM 3.7 MEQ/L (3.7-5.4); SAMPLE HEMOLYSIS CHECK 0; SAMPLE ICTERIC CHECK 0; SAMPLE LIPEMIA CHECK 0; SODIUM 138 MEQ/L (136-147); UREA NITROGEN (BUN) 37 mg/dL (9-23)
[2016-08-14 06:36] LABS: WHITE BLOOD COUNT 7.7 K/uL (4.1-10.2)
[2016-08-14 07:36] VITALS: BP 86/52
[2016-08-14 11:31] LABS: POINT-OF-CARE METER ID UU14149397
[2016-08-14 12:10] LABS: POINT-OF-CARE METER ID UU14188577
[2016-08-14 13:04] LABS: BASE EXCESS 16.7 mEq/L (-3 to +3); CARBOXY HGB 2.9 % (0-5); METHEMOGLOBIN 1.1 % (0-1.5)
[2016-08-14 13:05] LABS: BICARBONATE 41.6 mEq/L (22-26); COMMENTS - BLOOD GASES A+C+; DEVICE NCH; O2 FLOW 5 L/MIN; PCO2 51 mm Hg (35-45); PO2 87 mm Hg (80-100); SITE RR; pH 7.52 (7.35-7.45)
[2016-08-14 15:47] VITALS: BP 94/62
[2016-08-14 23:34] VITALS: BP 96/50
[2016-08-15 00:17] LABS: POINT-OF-CARE METER ID UU14188577
[2016-08-15 05:01] VITALS: BP 122/56
[2016-08-15 05:49] LABS: ANION GAP 8 MEQ/L (2-14); CHLORIDE 92 MEQ/L (99-109); GFR ESTIMATE (CALCULATED) > 59 mL/min/; GLUCOSE 129 mg/dL (70-99); MAGNESIUM 2.1 mg/dl (1.3-2.7); SAMPLE HEMOLYSIS CHECK 1; SAMPLE ICTERIC CHECK 0; SAMPLE LIPEMIA CHECK 0; SODIUM 140 MEQ/L (136-147); UREA NITROGEN (BUN) 32 mg/dL (9-23)
[2016-08-15 05:50] LABS: POTASSIUM 3.7 MEQ/L (3.7-5.4)
[2016-08-15 06:10] LABS: EOSINOPHIL (%) 0.4 % (0-5); HEMATOCRIT 36.6 % (38.0-50.0); IMMATURE GRANULOCYTE (%) 1.1 % (0.0-0.7); IMMATURE GRANULOCYTE COUNT 0.1 K/uL; MCH 31.3 PG (29.0-34.0); MCHC 30.6 G/DL (30.0-36.0); MCV 102.2 FL (86-99); MONOCYTE COUNT 0.9 K/uL (0-0.8); PLATELET COUNT 96 K/uL (156-360); RBC DIS.WIDTH-CV 26.3 % (11.8-14.6); RBC DIS.WIDTH-SD 94.4 % (39-53); WHITE BLOOD COUNT 9.1 K/uL (4.1-10.2)
[2016-08-15 06:12] LABS: RED BLOOD COUNT 3.58 M/uL (4.00-5.50)
[2016-08-15 08:36] VITALS: BP 111/54
[2016-08-15 16:27] VITALS: BP 95/67
[2016-08-16 00:12] VITALS: BP 103/57
[2016-08-16 05:54] LABS: ANION GAP 7 MEQ/L (2-14); CHLORIDE 95 MEQ/L (99-109); GFR ESTIMATE (CALCULATED) > 59 mL/min/; GLUCOSE 123 mg/dL (70-99); MAGNESIUM 2.1 mg/dl (1.3-2.7); POTASSIUM 3.8 MEQ/L (3.7-5.4); SAMPLE HEMOLYSIS CHECK 0; SAMPLE ICTERIC CHECK 0; SAMPLE LIPEMIA CHECK 0; SODIUM 140 MEQ/L (136-147); UREA NITROGEN (BUN) 29 mg/dL (9-23)
[2016-08-16 06:28] LABS: EOSINOPHIL (%) 0.6 % (0-5); HEMATOCRIT 31.2 % (38.0-50.0); IMMATURE GRANULOCYTE (%) 1.4 % (0.0-0.7); IMMATURE GRANULOCYTE COUNT 0.1 K/uL; INSTRUMENT ABS NEUTROPHIL CT 4.4 K/uL; MCH 31.7 PG (29.0-34.0); MCHC 31.4 G/DL (30.0-36.0); MONOCYTE (%) 13.3 % (3-12); MONOCYTE COUNT 0.9 K/uL (0-0.8); NEUTROPHIL (%) 69.1 % (45-76); NEUTROPHIL COUNT 4.4 K/uL (1.8-6.4); PLATELET COUNT 106 K/uL (156-360); RBC DIS.WIDTH-CV 24.7 % (11.8-14.6); RBC DIS.WIDTH-SD 88.1 % (39-53); RED BLOOD COUNT 3.09 M/uL (4.00-5.50); WHITE BLOOD COUNT 6.4 K/uL (4.1-10.2)
[2016-08-16 08:14] VITALS: BP 110/60
[2016-08-16 12:14] LABS: POINT-OF-CARE METER ID UU14188577
[2016-08-16 16:35] VITALS: BP 103/57
[2016-08-17 00:11] VITALS: BP 82/56
[2016-08-17 06:58] LABS: POINT-OF-CARE METER ID UU14188577
[2016-08-17 07:18] LABS: EOSINOPHIL (%) 2.2 % (0-5); EOSINOPHIL COUNT 0.1 K/uL (0-0.3); HEMATOCRIT 30.3 % (38.0-50.0); IMMATURE GRANULOCYTE (%) 1.1 % (0.0-0.7); IMMATURE GRANULOCYTE COUNT 0.1 K/uL; INSTRUMENT ABS NEUTROPHIL CT 2.7 K/uL; LYMPHOCYTE COUNT 1.1 K/uL (1.0-2.8); MCH 31.4 PG (29.0-34.0); MCV 101.3 FL (86-99); MEAN PLAT.VOLUME 12.8 uM^3 (9.0-12.4); MONOCYTE (%) 14.8 % (3-12); MONOCYTE COUNT 0.7 K/uL (0-0.8); NEUTROPHIL (%) 58.4 % (45-76); NEUTROPHIL COUNT 2.7 K/uL (1.8-6.4); PLATELET COUNT 124 K/uL (156-360); RBC DIS.WIDTH-CV 24.3 % (11.8-14.6); RBC DIS.WIDTH-SD 86.8 % (39-53); RED BLOOD COUNT 2.99 M/uL (4.00-5.50); WHITE BLOOD COUNT 4.6 K/uL (4.1-10.2)
[2016-08-17 07:24] LABS: ANION GAP 7 MEQ/L (2-14); CHLORIDE 97 MEQ/L (99-109); GFR ESTIMATE (CALCULATED) > 59 mL/min/; MAGNESIUM 2.3 mg/dl (1.3-2.7); POTASSIUM 3.8 MEQ/L (3.7-5.4); SAMPLE HEMOLYSIS CHECK 0; SAMPLE ICTERIC CHECK 0; SAMPLE LIPEMIA CHECK 0; SODIUM 138 MEQ/L (136-147); TOTAL BILIRUBIN 1.2 MG/DL (0.0-1.0); UREA NITROGEN (BUN) 26 mg/dL (9-23)
[2016-08-17 07:28] LABS: ALKALINE PHOSPHATASE 130 IU/L (3-129); GLUCOSE 196 mg/dL (70-99)
[2016-08-17 08:12] VITALS: BP 105/57
[2016-08-17 12:20] LABS: POINT-OF-CARE METER ID UU14188577
[2016-08-17 15:20] VITALS: BP 104/57
[2016-08-17] MEDS ORDERED: PREDNISONE1 MG/ML GT (15:29)
== END 2016-08-17 17:36 | DRG 871 ==
LOC: EME 00:11 → 3EAST 01:45 → EDOF 01:45 → 4WEST 01:45 → EDOF 08:15 → 4WEST 08:53 → 3EAST 08-08 22:27 → 4WEST 08-08 22:49 → 3EAST 08-09 00:02
PROVIDERS: Anesthesiology; Emergency Medicine; Hospitalist; Internal Medicine; Internal Medicine Hematology & Oncology; Internal Medicine Nephrology; Internal Medicine Pulmonary Disease
PROC: 05HN33Z Insertion of Infusion Device into Left Internal Jugular Vein, Percutaneous Approach (ICD-10-PCS; principal; 2016-07-27)
PROC: 03HC33Z Insertion of Infusion Device into Left Radial Artery, Percutaneous Approach (ICD-10-PCS; 2016-07-27)
PROC: 30233N1 Transfusion of Nonautologous Red Blood Cells into Peripheral Vein, Percutaneous Approach (ICD-10-PCS; 2016-07-28)
DX: A41.9 Sepsis, unspecified organism (principal); J09.X1 Influenza due to identified novel influenza A virus with pneumonia; R65.21 Severe sepsis with septic shock; J96.01 Acute respiratory failure with hypoxia; E87.1 Hypo-osmolality and hyponatremia; D61.818 Other pancytopenia; N17.9 Acute kidney failure, unspecified; E87.2 Acidosis; J90 Pleural effusion, not elsewhere classified; J98.11 Atelectasis; R47.01 Aphasia; E87.0 Hyperosmolality and hypernatremia; Z43.1 Encounter for attention to gastrostomy; D72.819 Decreased white blood cell count, unspecified; F79 Unspecified intellectual disabilities; Q90.9 Down syndrome, unspecified; E10.40 Type 1 diabetes mellitus with diabetic neuropathy, unspecified; E03.9 Hypothyroidism, unspecified; N18.2 Chronic kidney disease, stage 2 (mild); E10.22 Type 1 diabetes mellitus with diabetic chronic kidney disease; I12.9 Hypertensive chronic kidney disease with stage 1 through stage 4 chronic kidney disease, or unspecified chronic kidney disease; J31.0 Chronic rhinitis; E10.65 Type 1 diabetes mellitus with hyperglycemia; J45.909 Unspecified asthma, uncomplicated; E86.0 Dehydration; E87.6 Hypokalemia; R31.9 Hematuria, unspecified; R74.0 Nonspecific elevation of levels of transaminase and lactic acid dehydrogenase [LDH]; I27.2 Other secondary pulmonary hypertension; G47.30 Sleep apnea, unspecified; R60.1 Generalized edema; E88.09 Other disorders of plasma-protein metabolism, not elsewhere classified; R13.10 Dysphagia, unspecified
CPT/HCPCS: 31720; 36415; 36600; 71010; 71275; 74000; 80047; 80048; 80053; 80076; 80202; 81003; 82010; 82150; 82533 91; 82565; 82803; 82947 91; 82948; 83010 90; 83605; 83615; 83690; 83735; 83880; 84100; 84484; 85007; 85025; 85025 91; 85027; 85060; 85384; 85610; 85730; 86022 90; 86900; 86901; 86920; 87040; 87070; 87086; 87205; 87449; 87502; 87641; 89190; 93005; 93306; 94002; 94003; 94640; 94640 76; 94760; 94799; 99202; 99281; 99285; J0171; J0610; J0692; J0696; J1720; J1815; J1940; J1956; J2270; J2405; J2920; J2930; J2997; J3370; J3475; J7030; J7040; J7050; J7512; P9016; P9045; P9047

== ENCOUNTER → 2016-09-11 | Outpatient (CLI) | payer OTHER ==
[~2016-09-11] MED LIST changes: +CEPHALEXIN500 MG GT; +FERROUS SU220 MG/53 GT; +GLUCERNA 1 CAL237 ML GT; +MIRALAX17 GM GT; +PREDNISONE1 MG/ML GT; +SALINE NASAL SP45 ML BOTH NARES; +TAMIFLU6 MG/1 ML GT
== END ==
LOC: RAD 13:46
PROC: 0DH67UZ Insertion of Feeding Device into Stomach, Via Natural or Artificial Opening (ICD-10-PCS; principal; 2016-09-11)
DX: K94.20 Gastrostomy complication, unspecified (principal)

== ENCOUNTER 2016-09-30 10:14 | Inpatient (IN) | payer OTHER ==
[~2016-09-30] VITALS: Ht 129.5 cm; Wt 50.9 kg
[2016-09-30 11:50] LABS: EOSINOPHIL (%) 0.3 % (0-5); HEMATOCRIT 27.8 % (38.0-50.0); IMMATURE GRANULOCYTE (%) 0.5 % (0.0-0.7); INSTRUMENT ABS NEUTROPHIL CT 7.1 K/uL; LYMPHOCYTE COUNT 1.1 K/uL (1.0-2.8); MCH 33.9 PG (29.0-34.0); MCHC 33.5 G/DL (30.0-36.0); MCV 101.5 FL (86-99); MEAN PLAT.VOLUME 12.9 uM^3 (9.0-12.4); MONOCYTE (%) 5.8 % (3-12); MONOCYTE COUNT 0.5 K/uL (0-0.8); NEUTROPHIL (%) 80.9 % (45-76); NEUTROPHIL COUNT 7.1 K/uL (1.8-6.4); PLATELET COUNT 101 K/uL (156-360); RBC DIS.WIDTH-CV 17.5 % (11.8-14.6); RBC DIS.WIDTH-SD 64.8 % (39-53); RED BLOOD COUNT 2.74 M/uL (4.00-5.50); WHITE BLOOD COUNT 8.8 K/uL (4.1-10.2)
[2016-09-30 12:00] LABS: INTER. NORMALIZED RATIO 1.2; PROTHROMBIN TIME 11.8 (9.2-11.2); PTT 26.8 (25-32)
[2016-09-30 12:18] LABS: ADD MIUA? YES; BILIRUBIN NEGATIVE; BLOOD NEGATIVE; COLOR YELLOW ((YELLOW)); GLUCOSE (STRIP) >=500; KETONES NEGATIVE; LEUKOCYTES NEGATIVE; NITRITE NEGATIVE; PROTEIN (STRIP) NEGATIVE; SPECIFIC GRAVITY 1.007 (1.000-1.030); UROBILINOGEN 0.2 MG/DL (0.2-1.0)
[2016-09-30 12:41] LABS: ANION GAP 6 MEQ/L (2-14); CHLORIDE 97 MEQ/L (99-109); GFR ESTIMATE (CALCULATED) > 59 mL/min/; GLUCOSE 420 mg/dL (70-99); POTASSIUM 4.3 MEQ/L (3.7-5.4); SAMPLE HEMOLYSIS CHECK 0; SAMPLE ICTERIC CHECK 0; SAMPLE LIPEMIA CHECK 0; SODIUM 128 MEQ/L (136-147); UREA NITROGEN (BUN) 28 mg/dL (9-23)
[2016-09-30 12:54] LABS: TROP-I INTERPRETATION NEGATIVE; TROPONIN-I < 0.01 ng/mL (0.0-0.30)
[2016-09-30 12:56] LABS: AMORPHOUS URATES CRYSTALS 1+; BACTERIA NONE SEEN /HPF; CASTS NONE SEEN /LPF; CRYSTALS PRESENT; EPITHELIAL CELLS RARE /HPF; MUCUS NONE SEEN /LPF; RED BLOOD CELLS 0-5 /HPF (0-5); UCUL ADDED? NO; WHITE BLOOD CELLS 0-5 /HPF (0-5)
[2016-09-30] MEDS ORDERED: ACYCLOVIR200 MG/5 M PO (14:47)
[2016-09-30] MEDS ORDERED: RISAMINE OINTM113 GM TP (14:48)
[2016-09-30] MEDS ORDERED: ZOFRAN0.8 MG/1 M PO (14:51)
[2016-09-30 17:07] VITALS: BP 107/66
[2016-09-30 19:25] VITALS: BP 110/68
[2016-09-30 21:54] LABS: POINT-OF-CARE METER ID UU13113698
[2016-09-30 22:17] VITALS: BP 107/56
[2016-10-01 02:03] VITALS: BP 106/63
[2016-10-01 06:08] LABS: POINT-OF-CARE METER ID UU13113725
[2016-10-01 06:10] LABS: HEMATOCRIT 29.6 % (38.0-50.0); MCH 34.6 PG (29.0-34.0); MCHC 33.4 G/DL (30.0-36.0); MCV 103.5 FL (86-99); MEAN PLAT.VOLUME 12.9 uM^3 (9.0-12.4); PLATELET COUNT 91 K/uL (156-360); RBC DIS.WIDTH-CV 17.2 % (11.8-14.6); RBC DIS.WIDTH-SD 65.3 % (39-53); RED BLOOD COUNT 2.86 M/uL (4.00-5.50); WHITE BLOOD COUNT 3.7 K/uL (4.1-10.2)
[2016-10-01 06:36] LABS: ANION GAP 6 MEQ/L (2-14); CHLORIDE 105 MEQ/L (99-109); GFR ESTIMATE (CALCULATED) > 59 mL/min/; POTASSIUM 4.5 MEQ/L (3.7-5.4); SAMPLE HEMOLYSIS CHECK 0; SAMPLE ICTERIC CHECK 0; SAMPLE LIPEMIA CHECK 0; SODIUM 133 MEQ/L (136-147); UREA NITROGEN (BUN) 20 mg/dL (9-23)
[2016-10-01 06:47] LABS: GLUCOSE 175 mg/dL (70-99)
[2016-10-01 09:14] VITALS: BP 118/73
[2016-10-01 12:00] VITALS: BP 124/76
[2016-10-01 12:55] LABS: POINT-OF-CARE METER ID UU13113725
[2016-10-01 14:00] LABS: POINT-OF-CARE METER ID UU13113725
[2016-10-01 16:00] VITALS: BP 126/70
[2016-10-01 18:41] LABS: POINT-OF-CARE METER ID UU13113725
[2016-10-01 19:27] VITALS: BP 111/76
[2016-10-01 20:14] LABS: POINT-OF-CARE METER ID UU13113725
[2016-10-01 23:30] LABS: POINT-OF-CARE METER ID UU13113725
[2016-10-01 23:50] VITALS: BP 141/62
[2016-10-02 06:10] VITALS: BP 117/63
[2016-10-02 06:19] LABS: POINT-OF-CARE METER ID UU13113725
[2016-10-02 06:52] LABS: HEMATOCRIT 31.7 % (38.0-50.0); MCH 34.8 PG (29.0-34.0); MCHC 33.4 G/DL (30.0-36.0); MCV 103.9 FL (86-99); PLATELET COUNT 102 K/uL (156-360); RBC DIS.WIDTH-CV 17.4 % (11.8-14.6); RBC DIS.WIDTH-SD 67.4 % (39-53); RED BLOOD COUNT 3.05 M/uL (4.00-5.50)
[2016-10-02 07:15] LABS: ANION GAP 5 MEQ/L (2-14); CHLORIDE 112 MEQ/L (99-109); GFR ESTIMATE (CALCULATED) > 59 mL/min/; POTASSIUM 4.5 MEQ/L (3.7-5.4); SAMPLE HEMOLYSIS CHECK 0; SAMPLE ICTERIC CHECK 0; SAMPLE LIPEMIA CHECK 0; UREA NITROGEN (BUN) 18 mg/dL (9-23)
[2016-10-02 07:22] LABS: GLUCOSE 84 mg/dL (70-99); SODIUM 141 MEQ/L (136-147)
[2016-10-02 08:19] VITALS: BP 130/72
[2016-10-02 08:41] LABS: POINT-OF-CARE METER ID UU13113725
[2016-10-02 08:41] LABS: POINT-OF-CARE METER ID UU13113725
[2016-10-02 11:17] VITALS: BP 130/77
[2016-10-02 11:38] LABS: POINT-OF-CARE METER ID UU13113725
[2016-10-02 16:39] VITALS: BP 131/75
[2016-10-02 17:07] LABS: POINT-OF-CARE METER ID UU13113725
[2016-10-02 20:07] VITALS: BP 111/71
[2016-10-02 22:31] VITALS: BP 128/71
[2016-10-02 22:58] LABS: POINT-OF-CARE METER ID UU13113725
[2016-10-03 00:05] VITALS: BP 112/65
[2016-10-03 06:11] LABS: POINT-OF-CARE METER ID UU13113725
[2016-10-03 07:33] VITALS: BP 129/75
[2016-10-03 11:05] LABS: POINT-OF-CARE METER ID UU13113725
[2016-10-03 15:53] LABS: POINT-OF-CARE METER ID UU13113725
[2016-10-03 16:14] VITALS: BP 133/76
[2016-10-03 23:28] VITALS: BP 131/92
[2016-10-03 23:57] LABS: POINT-OF-CARE METER ID UU13113725
[2016-10-04 05:47] LABS: POINT-OF-CARE METER ID UU13113725
[2016-10-04 06:55] VITALS: BP 136/64
[2016-10-04 09:23] LABS: POINT-OF-CARE METER ID UU13113725
[2016-10-04 10:14] VITALS: BP 126/70
[2016-10-04 11:37] LABS: POINT-OF-CARE METER ID UU13113725
[2016-10-04 15:22] VITALS: BP 155/74
[2016-10-04] MEDS ORDERED: LEVOFLOXACIN750 MG GT (17:39)
== END 2016-10-04 20:30 | DRG 194 ==
LOC: EME 10:14 → EDOF 14:50 → 5EAST 14:50 → 4EAST 14:50 → 5EAST 21:13
PROVIDERS: Emergency Medicine; Family Medicine; Internal Medicine
PROC: 0D20XUZ Change Feeding Device in Upper Intestinal Tract, External Approach (ICD-10-PCS; principal; 2016-10-02)
DX: J18.9 Pneumonia, unspecified organism (principal); J90 Pleural effusion, not elsewhere classified; K94.23 Gastrostomy malfunction; F79 Unspecified intellectual disabilities; E10.65 Type 1 diabetes mellitus with hyperglycemia; I95.9 Hypotension, unspecified; E10.22 Type 1 diabetes mellitus with diabetic chronic kidney disease; R21 Rash and other nonspecific skin eruption; J98.11 Atelectasis; B95.7 Other staphylococcus as the cause of diseases classified elsewhere; J45.909 Unspecified asthma, uncomplicated; D63.8 Anemia in other chronic diseases classified elsewhere; E03.9 Hypothyroidism, unspecified; A60.00 Herpesviral infection of urogenital system, unspecified; N18.9 Chronic kidney disease, unspecified; I12.9 Hypertensive chronic kidney disease with stage 1 through stage 4 chronic kidney disease, or unspecified chronic kidney disease; E87.1 Hypo-osmolality and hyponatremia; Y83.3 Surgical operation with formation of external stoma as the cause of abnormal reaction of the patient, or of later complication, without mention of misadventure at the time of the procedure; Q90.9 Down syndrome, unspecified; Z88.1 Allergy status to other antibiotic agents; Z99.81 Dependence on supplemental oxygen; Z97.8 Presence of other specified devices; Z79.4 Long term (current) use of insulin; Z88.8 Allergy status to other drugs, medicaments and biological substances; Z93.1 Gastrostomy status; Z87.01 Personal history of pneumonia (recurrent)
CPT/HCPCS: 71010; 74000; 80048; 81003; 82948; 83605; 83735; 84484; 85025; 85027; 85610; 85730; 87040; 87077; 87186; 87801; 93005; 94760; 94799; 99202; 99281; 99285; J0692; J1815; J1956; J7030; J7050

== ENCOUNTER → 2016-12-03 | Outpatient (CLI) | payer OTHER ==
[~2016-12-03] MED LIST changes: +ACYCLOVIR200 MG/5 M PO; +LEVOFLOXACIN750 MG GT; +ZOFRAN0.8 MG/1 M PO
== END ==
LOC: RAD 14:15
PROC: 0DH67UZ Insertion of Feeding Device into Stomach, Via Natural or Artificial Opening (ICD-10-PCS; principal; 2016-12-03)
DX: K94.20 Gastrostomy complication, unspecified (principal)

== ENCOUNTER 2017-01-01 17:16 | Emergency (ER) | payer OTHER ==
[~2017-01-01] VITALS: Ht 144.8 cm; Wt 50.0 kg
[2017-01-01 19:17] VITALS: BP 99/69
== END 2017-01-01 19:23 | disposition home or self-care (01) ==
LOC: EME 17:16
PROC: 0D20XUZ Change Feeding Device in Upper Intestinal Tract, External Approach (ICD-10-PCS; principal; 2017-01-01)
DX: Z43.1 Encounter for attention to gastrostomy (principal)
CPT/HCPCS: 74000; 99281; 99283

== ENCOUNTER 2017-03-07 18:07 | Emergency (ER) | payer OTHER ==
[~2017-03-07] VITALS: Ht 147.3 cm; Wt 50.0 kg
[2017-03-07 22:18] LABS: POINT-OF-CARE METER ID UU13113702
[2017-03-07 22:24] VITALS: BP 123/79
== END 2017-03-07 22:24 ==
LOC: EME 18:07
PROVIDERS: Emergency Medicine
PROC: 0D20XUZ Change Feeding Device in Upper Intestinal Tract, External Approach (ICD-10-PCS; principal; 2017-03-07)
DX: K94.23 Gastrostomy malfunction (principal); F03.90 Unspecified dementia, unspecified severity, without behavioral disturbance, psychotic disturbance, mood disturbance, and anxiety; I10 Essential (primary) hypertension; E11.40 Type 2 diabetes mellitus with diabetic neuropathy, unspecified; J45.909 Unspecified asthma, uncomplicated; F79 Unspecified intellectual disabilities; E03.9 Hypothyroidism, unspecified; Z79.4 Long term (current) use of insulin; Z79.82 Long term (current) use of aspirin; Z88.1 Allergy status to other antibiotic agents; Z88.8 Allergy status to other drugs, medicaments and biological substances
CPT/HCPCS: 74000; 82948; 99281; 99285

== ENCOUNTER → 2017-06-13 | Outpatient (CLI) | payer OTHER ==
[~2017-06-13] MED LIST changes: +ATORVASTATIN CA10 MG GT; +FEROSUL220 MG/51 GT; +KEPPRA100 MG/1 M GT
== END ==
LOC: RAD 13:22
PROC: 0DH67UZ Insertion of Feeding Device into Stomach, Via Natural or Artificial Opening (ICD-10-PCS; principal; 2017-06-13)
DX: K94.20 Gastrostomy complication, unspecified (principal)
CPT/HCPCS: 74018; 76000

== ENCOUNTER 2017-07-20 02:35 | Inpatient (IN) | payer OTHER ==
[~2017-07-20] VITALS: Ht 149.9 cm; Wt 57.5 kg
[2017-07-20 03:30] LABS: HEMATOCRIT 29.3 % (38.0-50.0); HEMOGLOBIN 10.2 G/DL (12.5-16.6); MCH 35.9 PG (29.0-34.0); MCHC 34.8 G/DL (30.0-36.0); MCV 103.2 FL (86-99); PLATELET COUNT 77 K/uL (156-360); RBC DIS.WIDTH-CV 14.6 % (11.8-14.6); RBC DIS.WIDTH-SD 55.7 % (39-53); RED BLOOD COUNT 2.84 M/uL (4.00-5.50); WHITE BLOOD COUNT 3.3 K/uL (4.1-10.2)
[2017-07-20 03:39] LABS: ALBUMIN 2.6 g/dL (3.2-4.8); CHLORIDE 96 mEq/L (99-109); POTASSIUM 4.5 mEq/L (3.7-5.4); SODIUM 132 mEq/L (136-147)
[2017-07-20 03:41] LABS: TOTAL PROTEIN 6.5 g/dL (6.4-8.3)
[2017-07-20 03:43] LABS: TOTAL BILIRUBIN 0.4 mg/dL (0.0-1.0)
[2017-07-20 03:44] LABS: GLUCOSE 618 mg/dL (70-99)
[2017-07-20 03:45] LABS: ALKALINE PHOSPHATASE 259 IU/L (3-129); CREATININE 1.9 mg/dL (0.6-1.3); GFR ESTIMATE (CALCULATED) 39 mL/min/ (58.99-99999)
[2017-07-20 03:46] LABS: UREA NITROGEN (BUN) 40 mg/dL (9-23)
[2017-07-20 03:47] LABS: AST (GOT) 38 IU/L (2-34)
[2017-07-20 03:48] LABS: ALT (GPT) 26 IU/L (3-49); LIPASE 11 U/L (1.0-51.0)
[2017-07-20 03:52] LABS: TROP-I INTERPRETATION NEGATIVE; TROPONIN-I < 0.01 ng/mL (0.0-0.30)
[2017-07-20 07:25] VITALS: BP 128/77
[2017-07-20 11:30] VITALS: BP 125/72
[2017-07-20] MEDS ORDERED: TRESIBA FL100 UNIT/1 SC (11:56)
[2017-07-20] MEDS ORDERED: ASPIRIN81 M2 GT (11:59)
[2017-07-20] MEDS ORDERED: LIPITOR10 MG GT (11:59)
[2017-07-20] MEDS ORDERED: DOCU LIQUI50 MG/5 ML GT (12:03)
[2017-07-20] MEDS ORDERED: LEVO-T112 MCG GT (12:05)
[2017-07-20] MEDS ORDERED: LINZESS145 MCG GT (12:19)
[2017-07-20] MEDS ORDERED: CHILDREN'S5 MG/5 M1 GT (12:23)
[2017-07-20] MEDS ORDERED: MULTIPLE VITAM1 EACH GT (12:24)
[2017-07-20] MEDS ORDERED: ACTOS45 MG GT (12:36)
[2017-07-20] MEDS ORDERED: ZOVIRAX40 MG/ML GT (12:36)
[2017-07-20] MEDS ORDERED: KEPPRA100 MG/1 M GT (12:37)
[2017-07-20] MEDS ORDERED: NEURONTIN250 MG/5 M GT (12:37)
[2017-07-20] MEDS ORDERED: FERROUS SU220 MG/53 GT (12:38)
[2017-07-20] MEDS ORDERED: CYANOCOBAL1000 MCG/2 IM (12:39)
[2017-07-20] MEDS ORDERED: GLUCAGEN1 M1 IM (12:41)
[2017-07-20] MEDS ORDERED: BIOTENE ORALBAL42 G1 MM (12:41)
[2017-07-20] MEDS ORDERED: DUONEB 2.5-0.5 M3 ML AEROSOL (12:42)
[2017-07-20] MEDS ORDERED: CHILDREN'S160 MG/23 GT (12:43)
[2017-07-20] MEDS ORDERED: ZOFRAN0.8 MG/1 M GT (12:44)
[2017-07-20] MEDS ORDERED: MILK OF MAGN GT (12:44)
[2017-07-20] MEDS ORDERED: MIRALAX17 GM GT (12:45)
[2017-07-20] MEDS ORDERED: PHENERGAN25 MG PR (12:45)
[2017-07-20 16:45] VITALS: BP 110/78
[2017-07-20 19:05] LABS: APPEARANCE CLEAR ((CLEAR)); BILIRUBIN NEGATIVE; BLOOD SMALL; COLOR YELLOW ((YELLOW)); GLUCOSE (STRIP) >=500; KETONES NEGATIVE; LEUKOCYTES NEGATIVE; NITRITE NEGATIVE; PROTEIN (STRIP) 100; SPECIFIC GRAVITY 1.008 (1.000-1.030); UROBILINOGEN 0.2 MG/DL (0.2-1.0)
[2017-07-20 19:48] VITALS: BP 118/62
[2017-07-20 20:32] LABS: BACTERIA NONE SEEN /HPF; EPITHELIAL CELLS RARE /HPF; MUCUS NONE SEEN /LPF; UCUL ADDED? NO; WHITE BLOOD CELLS 0-5 /HPF (0-5)
[2017-07-20 22:02] VITALS: BP 156/100
[2017-07-20 23:34] VITALS: BP 128/70
[2017-07-21 04:13] VITALS: BP 108/59
[2017-07-21 05:53] LABS: BASOPHIL (%) 1.6 % (0-1); BASOPHIL COUNT 0.1 K/uL (0-0.1); EOSINOPHIL (%) 3.8 % (0-5); EOSINOPHIL COUNT 0.1 K/uL (0-0.3); HEMOGLOBIN 8.6 G/DL (12.5-16.6); IMM.RETIC FRACTION 30.8 % (3-19); IMMATURE GRANULOCYTE (%) 0.5 % (0.0-0.7); LYMPHOCYTE (%) 25.5 % (15-42); MCH 35.8 PG (29.0-34.0); MCHC 34.4 G/DL (30.0-36.0); MCV 104.2 FL (86-99); MONOCYTE (%) 10.5 % (3-12); MONOCYTE COUNT 0.4 K/uL (0-0.8); NEUTROPHIL (%) 58.1 % (45-76); NEUTROPHIL COUNT 2.2 K/uL (1.8-6.4); PLATELET COUNT 69 K/uL (156-360); RBC DIS.WIDTH-SD 57.4 % (39-53); RETIC HGB EQUIVALENT 43.8 (28-36); RETICULOCYTE COUNT 3.9 % (0.5-1.8); WHITE BLOOD COUNT 3.7 K/uL (4.1-10.2)
[2017-07-21 06:21] LABS: CHLORIDE 109 MEQ/L (99-109); POTASSIUM 3.6 MEQ/L (3.7-5.4); UREA NITROGEN (BUN) 31 mg/dL (9-23)
[2017-07-21 06:24] LABS: CREATININE 1.4 MG/DL (0.6-1.3); GFR ESTIMATE (CALCULATED) 56 mL/min/ (58.99-99999); GLUCOSE 121 mg/dL (70-99); SODIUM 139 MEQ/L (136-147)
[2017-07-21 08:00] VITALS: BP 138/64
[2017-07-21 08:40] LABS: FOLIC ACID (FOLATE) 18.8 NG/ML (5.0-22.0)
[2017-07-21 15:02] VITALS: BP 122/84
[2017-07-21 20:31] VITALS: BP 139/82
[2017-07-22] VITALS (8 sets, daily range): BP systolic 109–167; BP diastolic 41–86
[2017-07-22 06:55] LABS: CHLORIDE 111 MEQ/L (99-109); CREATININE 1.4 MG/DL (0.6-1.3); GFR ESTIMATE (CALCULATED) 56 mL/min/ (58.99-99999); GLUCOSE 156 mg/dL (70-99); POTASSIUM 3.7 MEQ/L (3.7-5.4); SODIUM 142 MEQ/L (136-147); UREA NITROGEN (BUN) 26 mg/dL (9-23)
[2017-07-22 07:35] LABS: HEMATOCRIT 28.7 % (38.0-50.0); HEMOGLOBIN 9.8 G/DL (12.5-16.6); MCH 35.6 PG (29.0-34.0); MCHC 34.1 G/DL (30.0-36.0); MCV 104.4 FL (86-99); RBC DIS.WIDTH-CV 15.6 % (11.8-14.6); RBC DIS.WIDTH-SD 58.7 % (39-53); RED BLOOD COUNT 2.75 M/uL (4.00-5.50)
[2017-07-22 08:10] LABS: EOSINOPHIL (%) 3.5 % (0-5); EOSINOPHIL COUNT 0.1 K/uL (0-0.3); IMMATURE GRANULOCYTE (%) 0.7 % (0.0-0.7); LYMPHOCYTE (%) 20.1 % (15-42); LYMPHOCYTE COUNT 0.8 K/uL (1.0-2.8); MONOCYTE (%) 9.4 % (3-12); MONOCYTE COUNT 0.4 K/uL (0-0.8); NEUTROPHIL (%) 65.3 % (45-76); NEUTROPHIL COUNT 2.6 K/uL (1.8-6.4); PLAT.SUFFICIENCY DECREASED; PLATELET COUNT 68 K/uL (156-360)
[2017-07-23 03:08] VITALS: BP 169/78
[2017-07-23 05:08] LABS: BASOPHIL (%) 1.5 % (0-1); BASOPHIL COUNT 0.1 K/uL (0-0.1); EOSINOPHIL (%) 3.2 % (0-5); EOSINOPHIL COUNT 0.1 K/uL (0-0.3); HEMATOCRIT 29.3 % (38.0-50.0); HEMOGLOBIN 10.2 G/DL (12.5-16.6); IMMATURE GRANULOCYTE (%) 0.7 % (0.0-0.7); LYMPHOCYTE (%) 25.7 % (15-42); MCH 36.2 PG (29.0-34.0); MCHC 34.8 G/DL (30.0-36.0); MCV 103.9 FL (86-99); MONOCYTE (%) 13.3 % (3-12); MONOCYTE COUNT 0.5 K/uL (0-0.8); NEUTROPHIL (%) 55.6 % (45-76); NEUTROPHIL COUNT 2.3 K/uL (1.8-6.4); NRBC (%) 0.5 /100 WBC (0-0); PLATELET COUNT 61 K/uL (156-360); RBC DIS.WIDTH-CV 15.3 % (11.8-14.6); RBC DIS.WIDTH-SD 57.7 % (39-53); RED BLOOD COUNT 2.82 M/uL (4.00-5.50); WHITE BLOOD COUNT 4.1 K/uL (4.1-10.2)
[2017-07-23 05:16] LABS: POTASSIUM 3.5 mEq/L (3.7-5.4); SODIUM 142 mEq/L (136-147)
[2017-07-23 05:20] LABS: CHLORIDE 113 mEq/L (99-109); GLUCOSE 68 mg/dL (70-99)
[2017-07-23 05:22] LABS: CREATININE 1.5 mg/dL (0.6-1.3); GFR ESTIMATE (CALCULATED) 51 mL/min/ (58.99-99999)
[2017-07-23 05:23] LABS: UREA NITROGEN (BUN) 25 mg/dL (9-23)
[2017-07-23 07:21] LABS: C DIFF TOXIN NEGATIVE (NEGATIVE)
[2017-07-23 07:35] LABS: PTT 37.4 SEC (25-37)
[2017-07-23 08:30] VITALS: BP 128/78
[2017-07-23 10:49] LABS: PLAT.SUFFICIENCY DECREASED; POLYCHROMASIA 1+
[2017-07-23 10:51] LABS: ANISOCYTOSIS 2+
[2017-07-23 12:21] VITALS: BP 143/78
[2017-07-23 12:45] LABS: GLUCOSE 40 mg/dL (70-99)
[2017-07-23 16:30] VITALS: BP 138/73
[2017-07-23 20:04] VITALS: BP 158/88
[2017-07-23 23:32] VITALS: BP 154/80
[2017-07-24 03:29] VITALS: BP 143/83
[2017-07-24 07:43] VITALS: BP 127/80
[2017-07-24 11:41] VITALS: BP 135/82
[2017-07-24] MEDS ORDERED: AUGMENTIN50 MG/ML PO (12:47)
[2017-07-24 15:35] VITALS: BP 135/76
[2017-07-25 14:21] LABS: CLINICAL INFORMATION PANCYTOPENIA; NUMBER OF MARKERS 22; SPECIMEN TYPE BONE MARROW; SPECIMEN VIABILITY 96
== END 2017-07-24 19:14 | DRG 178 ==
LOC: EME → EDBD 02:35 → EME 02:35 → 3EAST 04:21 → EDOF 04:21 → ENRESERV 05:08 → EDOF 05:08 → ENRESERV 05:41 → 3EAST 07:16
PROVIDERS: Emergency Medicine; Internal Medicine; Internal Medicine Hematology & Oncology; Radiology Diagnostic Radiology
DX: J69.0 Pneumonitis due to inhalation of food and vomit (principal); N17.9 Acute kidney failure, unspecified; E11.65 Type 2 diabetes mellitus with hyperglycemia; N13.30 Unspecified hydronephrosis; E11.22 Type 2 diabetes mellitus with diabetic chronic kidney disease; D61.818 Other pancytopenia; G40.909 Epilepsy, unspecified, not intractable, without status epilepticus; E11.40 Type 2 diabetes mellitus with diabetic neuropathy, unspecified; F79 Unspecified intellectual disabilities; D46.9 Myelodysplastic syndrome, unspecified; R13.10 Dysphagia, unspecified; G91.9 Hydrocephalus, unspecified; E03.9 Hypothyroidism, unspecified; I12.9 Hypertensive chronic kidney disease with stage 1 through stage 4 chronic kidney disease, or unspecified chronic kidney disease; K59.00 Constipation, unspecified; N18.9 Chronic kidney disease, unspecified; D75.89 Other specified diseases of blood and blood-forming organs; F03.90 Unspecified dementia, unspecified severity, without behavioral disturbance, psychotic disturbance, mood disturbance, and anxiety; J31.0 Chronic rhinitis; J45.909 Unspecified asthma, uncomplicated; Z87.442 Personal history of urinary calculi; Q90.9 Down syndrome, unspecified; Z93.1 Gastrostomy status
CPT/HCPCS: 71045; 71046; 74018; 76000; 76705; 77012; 80048; 80053; 81003; 82607; 82746; 82948; 83690; 84484; 84999; 85025; 85027; 85046; 85610; 85730; 87040; 87493; 93005; 99202; 99281; 99285; C1769; J0456; J0696; J1644; J1815; J2543; J7030; J7050

== ENCOUNTER 2017-09-01 11:12 | Inpatient (IN) | payer OTHER ==
[~2017-09-01] VITALS: Ht 139.7 cm; Wt 56.0 kg
[~2017-09-01 11:12] MED LIST changes: +AUGMENTIN50 MG/ML PO; +BIOTENE ORALBAL42 G1 MM; +CHILDREN'S160 MG/23 GT; +CHILDREN'S5 MG/5 M1 GT; +CYANOCOBAL1000 MCG/2 IM; +GLUCAGEN1 M1 IM; +LEVO-T112 MCG GT; +LIPITOR10 MG GT; +NEURONTIN250 MG/5 M GT; +TRESIBA FL100 UNIT/1 SC
[2017-09-01 12:49] LABS: APPEARANCE CLEAR ((CLEAR)); BILIRUBIN NEGATIVE; BLOOD NEGATIVE; COLOR YELLOW ((YELLOW)); GLUCOSE (STRIP) 50; KETONES NEGATIVE; LEUKOCYTES NEGATIVE; NITRITE NEGATIVE; PROTEIN (STRIP) 100; SPECIFIC GRAVITY 1.013 (1.000-1.030); UROBILINOGEN 0.2 MG/DL (0.2-1.0)
[2017-09-01 12:53] LABS: BACTERIA NONE SEEN /HPF; EPITHELIAL CELLS NONE SEEN /HPF; MUCUS NONE SEEN /LPF; RED BLOOD CELLS 0-5 /HPF (0-5); UCUL ADDED? NO; WHITE BLOOD CELLS 0-5 /HPF (0-5)
[2017-09-01 13:03] LABS: HEMATOCRIT 30.9 % (38.0-50.0); HEMOGLOBIN 10.5 G/DL (12.5-16.6); MCH 36.1 PG (29.0-34.0); MCV 106.2 FL (86-99); PLATELET COUNT 98 K/uL (156-360); RBC DIS.WIDTH-CV 14.4 % (11.8-14.6); RBC DIS.WIDTH-SD 56.3 % (39-53); RED BLOOD COUNT 2.91 M/uL (4.00-5.50); WHITE BLOOD COUNT 20.6 K/uL (4.1-10.2)
[2017-09-01] MEDS ORDERED: ACTOS45 MG GT (13:26)
[2017-09-01] MEDS ORDERED: ACYCLOVIR200 MG/5 M GT (13:27)
[2017-09-01] MEDS ORDERED: NEURONTIN250 MG/5 M GT (13:28)
[2017-09-01] MEDS ORDERED: KEPPRA100 MG/1 M GT (13:29)
[2017-09-01] MEDS ORDERED: FEROSUL220 MG/51 GT (13:30)
[2017-09-01] MEDS ORDERED: BIOTENE ORALBAL42 G1 MM (13:32)
[2017-09-01] MEDS ORDERED: DUONEB 2.5-0.5 M3 ML AEROSOL (13:33)
[2017-09-01] MEDS ORDERED: GLUCAGEN1 M1 IM (13:33)
[2017-09-01] MEDS ORDERED: CHILDREN'S160 MG/11 GT (13:34)
[2017-09-01] MEDS ORDERED: MILK OF MAGN GT (13:36)
[2017-09-01] MEDS ORDERED: ZOFRAN0.8 MG/1 M GT (13:37)
[2017-09-01] MEDS ORDERED: PHENERGAN25 MG PR (13:38)
[2017-09-01] MEDS ORDERED: MIRALAX17 GM GT (13:38)
[2017-09-01] MEDS ORDERED: LOW DOSE ASPIRI81 M1 GT (13:39)
[2017-09-01] MEDS ORDERED: LIPITOR10 MG GT (13:39)
[2017-09-01] MEDS ORDERED: CYANOCOBAL1000 MCG/2 IM (13:41)
[2017-09-01] MEDS ORDERED: LEVO-T112 MCG GT (13:42)
[2017-09-01] MEDS ORDERED: LINZESS145 MCG GT (13:42)
[2017-09-01] MEDS ORDERED: DOCU LIQUI50 MG/5 ML GT (13:42)
[2017-09-01] MEDS ORDERED: CHILDREN'S5 MG/5 M1 GT (13:43)
[2017-09-01] MEDS ORDERED: [UNRECOGNIZED DRUG - OTHER] GT (13:44)
[2017-09-01] MEDS ORDERED: HUMALOG100 UNIT/2 SC (13:48)
[2017-09-01] MEDS ORDERED: RISAMINE OINTM113 GM TP (13:49)
[2017-09-01] MEDS ORDERED: TRESIBA FL100 UNIT/1 SC (13:50)
[2017-09-01 14:09] LABS: ALBUMIN 2.5 G/DL (3.2-4.8); CHLORIDE 105 MEQ/L (99-109); POTASSIUM 4.4 MEQ/L (3.7-5.4); SODIUM 142 MEQ/L (136-147); TOTAL BILIRUBIN 0.5 MG/DL (0.0-1.0)
[2017-09-01 14:14] LABS: ALKALINE PHOSPHATASE 100 IU/L (3-129); ALT (GPT) 21 IU/L (3-49); AST (GOT) 33 IU/L (2-34); CREATININE 1.9 MG/DL (0.6-1.3); GFR ESTIMATE (CALCULATED) 39 mL/min/ (58.99-99999); GLUCOSE 148 mg/dL (70-99); TOTAL PROTEIN 6.4 G/DL (6.4-8.3); UREA NITROGEN (BUN) 46 mg/dL (9-23)
[2017-09-01 17:00] VITALS: BP 110/70
[2017-09-01 17:30] LABS: HEMATOCRIT 29.4 % (38.0-50.0); HEMOGLOBIN 9.6 G/DL (12.5-16.6); MCV 107.7 FL (86-99)
[2017-09-01 19:28] VITALS: BP 120/68
[2017-09-01 23:13] VITALS: BP 102/72
[2017-09-01 23:28] LABS: HEMATOCRIT 29.7 % (38.0-50.0); HEMOGLOBIN 9.9 G/DL (12.5-16.6); MCV 106.8 FL (86-99)
[2017-09-02 05:24] LABS: HEMATOCRIT 26.6 % (38.0-50.0); HEMOGLOBIN 8.8 G/DL (12.5-16.6); MCV 106.8 FL (86-99)
[2017-09-02 05:53] LABS: CHLORIDE 107 MEQ/L (99-109); CREATININE 1.8 MG/DL (0.6-1.3); GFR ESTIMATE (CALCULATED) 42 mL/min/ (58.99-99999); POTASSIUM 4.5 MEQ/L (3.7-5.4); SODIUM 138 MEQ/L (136-147); UREA NITROGEN (BUN) 39 mg/dL (9-23)
[2017-09-02 06:14] LABS: GLUCOSE 268 mg/dL (70-99)
[2017-09-02 07:57] VITALS: BP 106/60
[2017-09-02 11:07] LABS: HEMATOCRIT 26.7 % (38.0-50.0); HEMOGLOBIN 8.7 G/DL (12.5-16.6); MCV 107.7 FL (86-99)
[2017-09-02 11:40] VITALS: BP 86/50
[2017-09-02 12:39] LABS: GLUCOSE 210 mg/dL (70-99)
[2017-09-02 16:05] VITALS: BP 107/61
[2017-09-02 19:19] VITALS: BP 121/69
[2017-09-02 23:06] VITALS: BP 125/58
[2017-09-03 05:56] LABS: BASOPHIL (%) 1.5 % (0-1); BASOPHIL COUNT 0.1 K/uL (0-0.1); EOSINOPHIL (%) 7.7 % (0-5); EOSINOPHIL COUNT 0.3 K/uL (0-0.3); HEMOGLOBIN 9.1 G/DL (12.5-16.6); IMMATURE GRANULOCYTE (%) 0.6 % (0.0-0.7); LYMPHOCYTE (%) 22.9 % (15-42); LYMPHOCYTE COUNT 0.7 K/uL (1.0-2.8); MCH 34.7 PG (29.0-34.0); MCHC 32.5 G/DL (30.0-36.0); MCV 106.9 FL (86-99); MONOCYTE (%) 14.6 % (3-12); MONOCYTE COUNT 0.5 K/uL (0-0.8); NEUTROPHIL (%) 52.7 % (45-76); NEUTROPHIL COUNT 1.7 K/uL (1.8-6.4); PLATELET COUNT 102 K/uL (156-360); RBC DIS.WIDTH-CV 14.5 % (11.8-14.6); RBC DIS.WIDTH-SD 56.8 % (39-53); RED BLOOD COUNT 2.62 M/uL (4.00-5.50); WHITE BLOOD COUNT 3.2 K/uL (4.1-10.2)
[2017-09-03 06:22] LABS: CHLORIDE 111 MEQ/L (99-109); CREATININE 1.7 MG/DL (0.6-1.3); GFR ESTIMATE (CALCULATED) 44 mL/min/ (58.99-99999); GLUCOSE 157 mg/dL (70-99); POTASSIUM 4.3 MEQ/L (3.7-5.4); SODIUM 143 MEQ/L (136-147); UREA NITROGEN (BUN) 32 mg/dL (9-23)
[2017-09-03 06:56] VITALS: BP 118/69
[2017-09-03 15:20] VITALS: BP 143/80
[2017-09-04 00:40] VITALS: BP 124/76
[2017-09-04 05:44] LABS: BASOPHIL (%) 1.3 % (0-1); BASOPHIL COUNT 0.1 K/uL (0-0.1); EOSINOPHIL (%) 1.6 % (0-5); EOSINOPHIL COUNT 0.1 K/uL (0-0.3); HEMATOCRIT 28.1 % (38.0-50.0); HEMOGLOBIN 9.4 G/DL (12.5-16.6); IMMATURE GRANULOCYTE (%) 0.7 % (0.0-0.7); LYMPHOCYTE (%) 15.1 % (15-42); LYMPHOCYTE COUNT 0.7 K/uL (1.0-2.8); MCH 35.3 PG (29.0-34.0); MCHC 33.5 G/DL (30.0-36.0); MCV 105.6 FL (86-99); MONOCYTE (%) 14.7 % (3-12); MONOCYTE COUNT 0.7 K/uL (0-0.8); NEUTROPHIL (%) 66.6 % (45-76); PLATELET COUNT 93 K/uL (156-360); RBC DIS.WIDTH-CV 14.3 % (11.8-14.6); RBC DIS.WIDTH-SD 55.4 % (39-53); RED BLOOD COUNT 2.66 M/uL (4.00-5.50); WHITE BLOOD COUNT 4.5 K/uL (4.1-10.2)
[2017-09-04 06:06] LABS: CHLORIDE 109 MEQ/L (99-109); CREATININE 1.9 MG/DL (0.6-1.3); GFR ESTIMATE (CALCULATED) 39 mL/min/ (58.99-99999); GLUCOSE 231 mg/dL (70-99); POTASSIUM 4.4 MEQ/L (3.7-5.4); SODIUM 140 MEQ/L (136-147); UREA NITROGEN (BUN) 35 mg/dL (9-23)
[2017-09-04 06:52] VITALS: BP 124/74
[2017-09-04 15:05] VITALS: BP 154/65
[2017-09-05 00:43] VITALS: BP 112/93; BP 12/93
[2017-09-05 06:35] LABS: CHLORIDE 104 MEQ/L (99-109); CREATININE 1.8 MG/DL (0.6-1.3); GFR ESTIMATE (CALCULATED) 42 mL/min/ (58.99-99999); POTASSIUM 4.7 MEQ/L (3.7-5.4); SODIUM 138 MEQ/L (136-147); UREA NITROGEN (BUN) 35 mg/dL (9-23)
[2017-09-05 06:45] LABS: GLUCOSE 408 mg/dL (70-99)
[2017-09-05 07:20] VITALS: BP 118/70
[2017-09-05 16:18] VITALS: BP 118/61
[2017-09-05 23:43] VITALS: BP 125/78
[2017-09-06 07:10] VITALS: BP 147/70
[2017-09-06 14:38] LABS: CHLORIDE 103 MEQ/L (99-109); POTASSIUM 4.4 MEQ/L (3.7-5.4); SODIUM 138 MEQ/L (136-147)
[2017-09-06 14:51] LABS: CREATININE 1.8 MG/DL (0.6-1.3); GFR ESTIMATE (CALCULATED) 42 mL/min/ (58.99-99999); UREA NITROGEN (BUN) 33 mg/dL (9-23)
[2017-09-06 14:52] LABS: GLUCOSE 156 mg/dL (70-99)
[2017-09-06 15:00] VITALS: BP 131/79
[2017-09-06] MEDS ORDERED: E.E.S. SUS200 MG/5 M GT (17:57)
[2017-09-06] MEDS ORDERED: LEVOFLOXACIN750 MG GT (17:57)
== END 2017-09-06 20:00 | DRG 178 ==
LOC: EME 11:12 → 5EAST 13:55 → EDOF 13:55 → ENRESERV 14:11 → 5EAST 15:20 → ENRESERV 15:27 → 5EAST 15:59
PROVIDERS: Emergency Medicine; Internal Medicine
PROC: 0D20XUZ Change Feeding Device in Upper Intestinal Tract, External Approach (ICD-10-PCS; principal; 2017-09-01)
DX: J69.0 Pneumonitis due to inhalation of food and vomit (principal); K94.23 Gastrostomy malfunction; R09.02 Hypoxemia; Q90.9 Down syndrome, unspecified; G91.9 Hydrocephalus, unspecified; E03.9 Hypothyroidism, unspecified; F79 Unspecified intellectual disabilities; N18.2 Chronic kidney disease, stage 2 (mild); E11.40 Type 2 diabetes mellitus with diabetic neuropathy, unspecified; G40.909 Epilepsy, unspecified, not intractable, without status epilepticus; F02.80 Dementia in other diseases classified elsewhere, unspecified severity, without behavioral disturbance, psychotic disturbance, mood disturbance, and anxiety; G30.9 Alzheimer's disease, unspecified; J45.909 Unspecified asthma, uncomplicated; I12.9 Hypertensive chronic kidney disease with stage 1 through stage 4 chronic kidney disease, or unspecified chronic kidney disease; E11.22 Type 2 diabetes mellitus with diabetic chronic kidney disease; Z79.82 Long term (current) use of aspirin; Z79.899 Other long term (current) drug therapy; K92.1 Melena; D50.0 Iron deficiency anemia secondary to blood loss (chronic); K21.9 Gastro-esophageal reflux disease without esophagitis; K59.8 Other specified functional intestinal disorders; D61.818 Other pancytopenia; R13.10 Dysphagia, unspecified; Z79.84 Long term (current) use of oral hypoglycemic drugs
CPT/HCPCS: 71045; 74018; 80048; 80053; 81003; 82948; 83605; 84999; 85014; 85018; 85025; 85027; 86850; 86900; 86901; 87040; 87077; 87801; 93005; 94799; 99202; 99281; 99285; C9113; J0692; J1815; J1956; J7030; J7042

== ENCOUNTER 2017-09-27 22:01 | Emergency (ER) | payer OTHER ==
[~2017-09-27] VITALS: Ht 157.5 cm; Wt 63.6 kg
[~2017-09-27 22:01] MED LIST changes: +CHILDREN'S160 MG/11 GT; +E.E.S. SUS200 MG/5 M GT; +LOW DOSE ASPIRI81 M1 GT; +[UNRECOGNIZED DRUG - OTHER] GT
[2017-09-28 00:52] VITALS: BP 111/79
== END 2017-09-28 00:53 | disposition home or self-care (01) ==
LOC: EME 22:01
PROC: 0D20XUZ Change Feeding Device in Upper Intestinal Tract, External Approach (ICD-10-PCS; principal; 2017-09-27)
DX: K94.03 Colostomy malfunction (principal); F79 Unspecified intellectual disabilities; I10 Essential (primary) hypertension; E03.9 Hypothyroidism, unspecified; J45.909 Unspecified asthma, uncomplicated; E11.9 Type 2 diabetes mellitus without complications; Z79.4 Long term (current) use of insulin; Z79.82 Long term (current) use of aspirin
CPT/HCPCS: 74018; 99281; 99283

== ENCOUNTER 2017-10-07 18:29 | Emergency (ER) | payer OTHER ==
[~2017-10-07] VITALS: Ht 152.4 cm; Wt 75.0 kg
[2017-10-07 19:17] LABS: BASOPHIL (%) 0.8 % (0-1); EOSINOPHIL (%) 3.5 % (0-5); EOSINOPHIL COUNT 0.2 K/uL (0-0.3); HEMATOCRIT 36.5 % (38.0-50.0); IMMATURE GRANULOCYTE (%) 0.4 % (0.0-0.7); LYMPHOCYTE (%) 20.4 % (15-42); LYMPHOCYTE COUNT 1.1 K/uL (1.0-2.8); MCH 35.2 PG (29.0-34.0); MCV 103.7 FL (86-99); MONOCYTE (%) 9.2 % (3-12); MONOCYTE COUNT 0.5 K/uL (0-0.8); NEUTROPHIL (%) 65.7 % (45-76); NEUTROPHIL COUNT 3.4 K/uL (1.8-6.4); RBC DIS.WIDTH-CV 14.1 % (11.8-14.6); RBC DIS.WIDTH-SD 53.8 % (39-53); RED BLOOD COUNT 3.52 M/uL (4.00-5.50); WHITE BLOOD COUNT 5.2 K/uL (4.1-10.2)
[2017-10-07 19:20] LABS: HEMOGLOBIN 12.4 G/DL (12.5-16.6); PLATELET COUNT 92 K/uL (156-360)
[2017-10-07 19:27] LABS: ALBUMIN 2.9 g/dL (3.2-4.8); CHLORIDE 102 mEq/L (99-109); POTASSIUM 4.5 mEq/L (3.7-5.4); SODIUM 138 mEq/L (136-147)
[2017-10-07 19:29] LABS: GLUCOSE 71 mg/dL (70-99); TOTAL PROTEIN 8.3 g/dL (6.4-8.3)
[2017-10-07 19:31] LABS: TOTAL BILIRUBIN 0.3 mg/dL (0.0-1.0)
[2017-10-07 19:33] LABS: ALKALINE PHOSPHATASE 161 IU/L (3-129); CREATININE 1.9 mg/dL (0.6-1.3); GFR ESTIMATE (CALCULATED) 39 mL/min/ (58.99-99999)
[2017-10-07 19:34] LABS: AST (GOT) 58 IU/L (2-34); UREA NITROGEN (BUN) 56 mg/dL (9-23)
[2017-10-07 19:36] LABS: ALT (GPT) 31 IU/L (3-49)
[2017-10-07 19:41] LABS: TROP-I INTERPRETATION NEGATIVE; TROPONIN-I 0.01 ng/mL (0.0-0.30)
[2017-10-07 23:45] VITALS: BP 135/85
== END 2017-10-07 23:47 ==
LOC: EME 18:29
PROVIDERS: Emergency Medicine
DX: R09.02 Hypoxemia (principal); R13.10 Dysphagia, unspecified; R05 Cough; I10 Essential (primary) hypertension; F03.90 Unspecified dementia, unspecified severity, without behavioral disturbance, psychotic disturbance, mood disturbance, and anxiety; F79 Unspecified intellectual disabilities; E03.9 Hypothyroidism, unspecified; Z93.1 Gastrostomy status; Z88.1 Allergy status to other antibiotic agents; Z88.8 Allergy status to other drugs, medicaments and biological substances
CPT/HCPCS: 74022; 80053; 84484; 85025; 93005; 99281; 99285